=== PATIENT | female | born 1950 | race Hispanic/Latino ===

== ENCOUNTER 2020-01-08 10:23 | Inpatient (IN) | payer MEDICARE ==
[~2020-01-08] VITALS: Ht 152.4 cm; Wt 77.3 kg
[2020-01-08 12:36] LABS: BASOPHILS % 0.6 % (0.0-1.0); EOSINOPHILS # (AUTO) 0.1 (0.0-0.4); EOSINOPHILS % 1.7 % (0.0-6.0); HEMATOCRIT 38.8 % (34.2-44.1); HEMOGLOBIN 11.7 g/dL (12.0-16.0); LYMPHOCYTES # (AUTO) 2.2 (1.0-3.2); LYMPHOCYTES % 29.9 % (18.0-39.1); MEAN CORPUSCULAR HEMOGLOBIN 19.2 pg (28-32); MEAN CORPUSCULAR HGB CONC 30.2 g/dL (31-35); MEAN CORPUSCULAR VOLUME 63.8 fL (81-99); MONOCYTES # (AUTO) 0.6 (0.2-0.8); MONOCYTES % 8.1 % (4.4-11.3); NEUTROPHILS # (AUTO) 4.3 (2.1-6.9); RED BLOOD COUNT 6.08 x10e6/uL (3.6-5.1); RED CELL DISTRIBUTION WIDTH 16.9 % (11.7-14.4)
[2020-01-08 12:42] LABS: PLATELET COUNT 23 x10e3/uL (140-360)
--- NOTE | 2020-01-08 12:58 | Emergency Department Note ---
History of Present Illnes History of Present Illness Chief Complaint: General Medicine Complaints History of Present Illness This is a 69 year old female sent here by for platelet transfusion. States called today and lab from Wednesday showed platelet count 28. Platelet count on Wednesday around 40. Has had to get periodic transfusions over the last few years. States has small bruise on abdomen, but brusing at baseline and expects would have more brusing for platelet count at this level. PCP took patient of oral DM med at Wednesday appt. Historian: Patient Arrival Mode: Car History limited by: language barrier Technology Education Instructor Required: Yes Onset (how long ago): year(s) Location: abdomen Quality: no pain, brusing Radiation: Reports non-radiation Onset quality: unable to specify Timing of current episode: constant Progression: worsening Context: Denies recent illness, Denies recent surgery Associated symptoms: Reports denies other symptoms Past Medical/Family History Physician Review I have reviewed the patient's past medical and family history. Any updates have been documented here. Past Medical History Recent Fever: No Clinical Suspicion of Infectio: No New/Unexplained Change in Ment: No Past Medical History: Hypertension, Diabetes Other Medical History: thyroid Social History Smoking Cessation: Never Smoker Any Illegal Drug Use: No Review of Systems Review of Systems Constitutional: Reports no symptoms EENTM: Reports no symptoms Cardiovascular: Reports no symptoms Respiratory: Reports no symptoms Gastrointestinal: Reports no symptoms Musculoskeletal: Reports no symptoms Integumentary: Reports no symptoms Neurological: Reports no symptoms Psychological: Reports no symptoms Endocrine: Denies excessive sweating, Denies intolerance to cold, Denies intolerance to heat, Denies increased thirst, Denies increased urination Hematological/Lymphatic: Reports as per HPI, Reports easy bleeding, Reports easy bruising; Denies anemia, Denies blood clots Physical Exam Related Data Allergies: Coded Allergies: Penicillins (Verified Adverse Reaction, Unknown, made her face feel hot, 01/08/20) nurse told her not to take it again Physical Exam CONSTITUTIONAL Constitutional: Present well-developed, Present well-nourished HENT HENT: Present normocephalic, Present atraumatic HENT L/R: Present left ext ear normal, Present right ext ear normal EYES Eyes: Reports lids normal; Denies left eye discharge, Denies right eye discharge NECK Neck: Present ROM normal, Present supple PULMONARY Pulmonary: Present effort normal, Present breath sounds normal; Absent respiratory distress, Absent chest tenderness CARDIOVASCULAR Cardiovascular: Present regular rhythm, Present normal rate GASTROINTESTINAL Abdominal: Present soft, Present nontender GENITOURINARY SKIN Skin: Present warm, Present dry, Present bruising (abdomen); Absent rash MUSCULOSKELETAL NEUROLOGICAL Neurological: Present alert, Present oriented x 3 PSYCHOLOGICAL Psychological: Present mood/affect normal Results Laboratory Result Diagram: 01/08/20 1132 Laboratory HOPD: WBC 7.o, HGB 11.9, HCT 37.6, PLT 33. CMP normal with GLU 125. Laboratory Tests Test 01/08/20 11:32 White Blood Count 7.20 x10e3/uL (4.8-10.8) Red Blood Count 6.08 x10e6/uL (3.6-5.1) Hemoglobin 11.7 g/dL (12.0-16.0) Hematocrit 38.8 % (34.2-44.1) Mean Corpuscular Volume 63.8 fL (81-99) Mean Corpuscular Hemoglobin 19.2 pg (28-32) Mean Corpuscular Hemoglobin Concent 30.2 g/dL (31-35) Red Cell Distribution Width 16.9 % (11.7-14.4) Platelet Count 23 x10e3/uL (140-360) Neutrophils (%) (Auto) 59.0 % (38.7-80.0) Lymphocytes (%) (Auto) 29.9 % (18.0-39.1) Monocytes (%) (Auto) 8.1 % (4.4-11.3) Eosinophils (%) (Auto) 1.7 % (0.0-6.0) Basophils (%) (Auto) 0.6 % (0.0-1.0) Neutrophils # (Auto) 4.3 (2.1-6.9) Lymphocytes # (Auto) 2.2 (1.0-3.2) Monocytes # (Auto) 0.6 (0.2-0.8) Eosinophils # (Auto) 0.1 (0.0-0.4) Basophils # (Auto) 0.0 (0.0-0.1) Absolute Immature Granulocyte (auto 0.05 x10e3/uL (0-0.1) Assessment & Plan Medical Decision Making MDM Thrombocytopenia. Spoke with Dr. Farnsworth who agreed to admit for transfusion. Assessment & Plan Final Impression: (1) Thrombocytopenia Depart Disposition: ADMITTED Home Meds Reported Medications Omeprazole (OMEPRAZOLE) 40 Mg Capsule.dr, 20 DAILY 01/08/20 Levothyroxine Sodium (LEVOTHYROXINE SODIUM) 88 Mcg Tablet, 88 MCG PO DAILY, #30 TAB 01/08/20 Losartan Potassium (LOSARTAN POTASSIUM) 100 Mg Tablet, 100 MG PO DAILY, TAB 01/08/20 Medications in the ED Ondansetron HCl 4 mg Q4H PRN IV NAUSEA AND VOMITING; Start 01/08/20 at 13:00; Stop 02/07/20 at 12:59; Status UNV Sodium Chloride 10 ml PRN PRN INJ IV SITE FLUSH; Start 01/08/20 at 13:00; Stop 02/07/20 at 12:59; Status UNV TARA GRANADOS MD Jan 08, 2020 12:58
[2020-01-08] MEDS ORDERED: SODIUM CHLORIDE FLUSH 10 ML SYR INJ PRN (13:00)
[2020-01-08] MEDS ORDERED: ONDANSETRON HCL INJ 2MG/ML 2ML 2 MG/ML VIAL IV PRN (13:00)
[2020-01-08] MEDS ORDERED: LOSARTAN POTAS100 MG PO (14:00)
[2020-01-08] MEDS ORDERED: OMEPRAZOLE40 MG PO (14:00)
[2020-01-08] MEDS ORDERED: LEVOTHYROXINE88 MCG PO (14:00)
--- NOTE | 2020-01-08 14:50 | NUR ---
[facility] called to transport pt to 290
--- NOTE | 2020-01-08 14:57 | NUR ---
Report to Ashley Avendaño RN
[2020-01-08] MEDS ORDERED: CLONIDINE HCL 0.1 MG TAB PO ONE (15:15)
[2020-01-08 16:10] VITALS: BP 171/74
[2020-01-08 16:40] VITALS: BP 171/74
[2020-01-08 16:53] VITALS: BP 171/74
[2020-01-08 16:57] VITALS: BP 162/74
--- NOTE | 2020-01-08 17:23 | NUR ---
PATIENT ARRIVED ON THE UNIT AT 1530 FROM THE ER. PATIENT IS AWAKE, ALERT, AND IN STABLE CONDITIONS WITH NO S/S OF RESPIRATORY DISTRESS. NO PAIN VOICED. CALL LIGHT IS WITHIN REACH, PATIENT INSTRUCTED TO CALL FOR ASSISTANCE NEEDED.
--- NOTE | 2020-01-08 19:19 | NUR ---
PATIENT IN STABLE CONDITION WITH NO S/S OF RESPIRATORY DISTRESS. NO PAIN VOICED. CALL LIGHT IS WITHIN REACH, PATIENT INSTRUCTED TO CALL FOR ASSISTANCE NEEDED. REPORT GIVEN TO ONCOMING NURSE.
--- NOTE | 2020-01-08 19:20 | NUR ---
RECEIVED THE PATIENT IN REPORT.AAOX3.STABLE CONDITION.
[2020-01-08 20:00] VITALS: BP 146/67
[2020-01-08] MEDS ORDERED: DEXTROSE 50% SYRINGE 50 ML IV PRN (20:00)
--- NOTE | 2020-01-08 20:00 | NUR ---
CONSENT SIGNED FOR TRANSFUSION OF PLATELETS WITH HELP OF LEGAL FRAUD MANAGER RANDALL dHz, ID #[id number].V/S PARISA.
[2020-01-08 21:00] VITALS: BP 124/90
--- NOTE | 2020-01-08 21:00 | NUR ---
FIRST UNIT OF PLATELETS STARTED AFTER VERIFY [facility] JACE MCNEIL.V/S STABLE.
--- NOTE | 2020-01-08 22:10 | NUR ---
FIRST UNIT OF PLATELET TRANSFUSION COMPLETED.NO TRANSFUSION REACTION NOTED.PT.TOLERATED WELL.STABLE CONDITION.
[2020-01-08] MEDS: INSULIN REGULAR, HUMAN 100 UNIT/1 ML 3ML VIAL SQ SCH (22:14)
--- NOTE | 2020-01-08 23:15 | NUR ---
SECOND UNIT OF PLATELET TRANSFUSION STARTED.
[2020-01-09] VITALS (8 sets, daily range): BP systolic 124–162; BP diastolic 55–78
--- NOTE | 2020-01-09 01:00 | NUR ---
Transfusion completed.no reaction observed.pt is stable.
[2020-01-09] MEDS ORDERED: DOCUSATE SODIUM 100 MG CAP PO PRN (05:45)
[2020-01-09] MEDS ORDERED: ONDANSETRON HCL INJ 2MG/ML 2ML 2 MG/ML VIAL IV PRN (05:45)
[2020-01-09] MEDS ORDERED: ZOLPIDEM TARTRATE 5 MG TAB PO PRN (05:45)
--- NOTE | 2020-01-09 05:47 | NUR ---
H&P cc: low platelts HPI: 69yoF, PCP none, with hx thrombocytopenia, now worse PMH: HTN, hypothyroidism, GERD, chronic thrombocytopenia PSHx: hysterectomy Allergies; see emrFh/SH; ; no cigs Fh/SH; ; no cigs meds; see MAR ROS: no f/c/s/N/V/D/CASTANON/skin rash/confusion/dizziness/visionchanges/no cp v/s revd PE tired appearing anicteric ns1s2 mod bs soft nt nd no e/t skin dry flat affect awake; trejo labs/meds revd A/P: 69yoF Chronic thrombocytopenia- consult hematology. Mild anemia- f/u repeat Hypertensive Emergency- cont losartan; start BB Hypothyroisim- resume synthroid; check TSH GERD- cont pepcid Prop: scd; avoid heparin products. DIspo; f/u hematology recommendations; Beni Farnsworth MD, PhD.
[2020-01-09] MEDS: METOPROLOL TARTRATE 50 MG TAB PO SCH ×3 (05:58→17:10)
[2020-01-09 06:11] LABS: BASOPHILS % 0.6 % (0.0-1.0); EOSINOPHILS # (AUTO) 0.2 (0.0-0.4); HEMATOCRIT 33.4 % (34.2-44.1); HEMOGLOBIN 10.1 g/dL (12.0-16.0); LYMPHOCYTES # (AUTO) 2.5 (1.0-3.2); LYMPHOCYTES % 36.3 % (18.0-39.1); MEAN CORPUSCULAR HEMOGLOBIN 19.2 pg (28-32); MEAN CORPUSCULAR HGB CONC 30.2 g/dL (31-35); MEAN CORPUSCULAR VOLUME 63.5 fL (81-99); MONOCYTES # (AUTO) 0.6 (0.2-0.8); MONOCYTES % 7.9 % (4.4-11.3); NEUTROPHILS # (AUTO) 3.6 (2.1-6.9); NEUTROPHILS % 51.5 % (38.7-80.0); PLATELET COUNT 52 x10e3/uL (140-360); RED BLOOD COUNT 5.26 x10e6/uL (3.6-5.1); RED CELL DISTRIBUTION WIDTH 15.8 % (11.7-14.4)
[2020-01-09 06:29] LABS: CHOL/HDL RATIO 5.6 (3.0-3.6)
[2020-01-09] MEDS: ACETAMINOPHEN 325 MG TAB PO PRN ×2 (06:33→14:44)
--- NOTE | 2020-01-09 07:00 | NUR ---
BEDSIDE SHIFT REPORT RECEIVED FROM THE HOUSEKEEPER SUPERVISOR RN. EDUCATED PT ABOUT FALL PRECAUTIONS. PT VERBALIZED UNDERSTANDING. CALL LIGHT WITH IN EASY REACH. INSTRUCTED PT TO USE CALL LIGHT FOR ALL THE NEEDS. BED IS LOW AND LOCKED. SIDE RAILS X2. BED ALARM IS ON. PT DENIES NEEDS AT THIS TIME.
[2020-01-09 07:03] LABS: ANION GAP 13.9 mmol/L (8-16); BLOOD UREA NITROGEN 10 mg/dL (7-26); BUN/CREATININE RATIO 13 (6-25); CALCIUM 8.7 mg/dL (8.4-10.2); CARBON DIOXIDE 23 mmol/L (22-29); CHLORIDE 109 mmol/L (98-107); CREATININE, SERUM 0.75 mg/dL (0.57-1.11); EST GLOMERULAR FILTRATION RATE > 60 ML/MIN (60-); GLUCOSE 111 mg/dL (74-118); POTASSIUM 3.9 mmol/L (3.5-5.1); SODIUM 142 mmol/L (136-145)
--- NOTE | 2020-01-09 07:05 | NUR ---
Bed side shift report given to oncoming Rn.stable condition.
[2020-01-09 07:17] LABS: ALBUMIN 3.6 g/dL (3.5-5.0); BILIRUBIN,DIRECT 0.3 mg/dL (0.0-0.5)
[2020-01-09 07:57] LABS: ANISOCYTOSIS SLIGHT; PLATELET ESTIMATE MODERATELY DECREASED; PLATELET MORPHOLOGY COMMENT NORMAL; RBC MORPHOLOGY COMMENT ABNORMAL; TEAR DROP CELLS FEW
[2020-01-09 07:58] LABS: ELLIPTOCYTE, RBC SLIGHT; HYPOCHROMASIA SLIGHT; MICROCYTOSIS MODERATE
[2020-01-09] MEDS: INSULIN REGULAR, HUMAN 100 UNIT/1 ML 3ML VIAL SQ SCH ×4 (08:30→20:22)
[2020-01-09] MEDS: PANTOPRAZOLE SOD 40 MG TABEC PO SCH (08:45)
[2020-01-09] MEDS: LEVOTHYROXINE SODIUM 88 MCG TAB PO SCH (08:45)
[2020-01-09] MEDS: LOSARTAN POTASSIUM 100 MG TAB PO SCH (08:45)
--- NOTE | 2020-01-09 10:17 | NUR ---
HEMATOLOGY/ONCOLOGY CONSULTATION NOTE: REASON FOR CONSULTATION: Thrombocytopenia HISTORY OF PRESENT ILLNESS: Ms. Escobar is a pleasant 69 year old female with past medical history of hypertension, hypothyroidism, and diabetes mellitus who was admitted to [facility] from her primary care physician for platelet transfusion. Patient received a call from her primary care physician with platelet count 28,000. She has received platelet transfusions in the past. Patient notices small bruises around her abdominal region. Platelet count on admission 23,000. She also states she has a history of anemia. Hematology/Oncology has been consulted to assist with management. Presently, patient is resting comfortably in bed. She appears NAD and denies any new complaints. ALLERGIES: Penicillin PAST MEDICAL HISTORY: hypertension, diabetes mellitus, hypothyroidism PAST SURGICAL HISTORY: None FAMILY HISTORY: Noncontributory REVIEW OF SYSTEMS: 14 Point ROS limited secondary to language barrier PHYSICAL EXAMINATION: VITAL SIGNS: Reviewed per MAR GENERAL: NAD HEENT: NC, AT; EOMI NECK: Supple CARDIOVASCULAR: Regular rate, regular rhythm PULMONARY: Decreased breath sounds bilaterally ABDOMEN: Soft, NTND, BS x 4 MUSCULOSKELETAL Moves all EXTREMITIES: No cyanosis, no edema, no petechial lesion/ecchymosis NEUROLOGIC: Awake, alert PSHYCIATRIC: Cooperative LABORATORY DATA: 01/09/2020 WBC: 6.95 Hgb: 10.1 Hct: 33.4 Plt: 52 BUN: 10 Creatinine: 0.75 RADIOGRAPHIC DATA: None ASSESSMENT/PLAN: Ms. Escobar is a pleasant 69 year old female with past medical history of hypertension, hypothyroidism, and diabetes mellitus who was admitted to [facility] from her primary care physician for platelet transfusion. Patient received a call from her primary care physician with platelet count 28,0 00. She has received platelet transfusions in the past. Patient notices small bruises around her abdominal region. Platelet count on admission 23,000. She also states she has a history of anemia. Hematology/Oncology has been consulted to assist with management. 1. Thrombocytopenia: Uncertain etiology however appears acute on chronic. Will obtain PT/INR, acute hepatitis panel, abdominal US, and peripheral smear for further evaluation. Plt morphology normal. Liver enzymes normal. This could be immune mediated however will rule out other etiologies first. S/p 2 jumbo platel ets with improvement in counts now 52,000. No signs of active bleeding. Transfuse if platelet < 20,000. Will monitor closely. 2. Anemia: High RBC with severe microcytosis concerning for possible underlying hemoglobinopathy. Will obtain baseline workup to rule out iron deficiency, nutritional deficiency, and/or hemolysis. Will also obtain hemoglobin electropho resis to rule out hemoglobinopathy as mentioned above. Counts currently stable. Will provide further recommendations depending on workup. Monitor for now. 3. hypothyroidism: On Synthroid. Managed per primary team. 4. DVT/GI proph: SCDs for now. On Protonix. Above plan discussed with Dr. Min. Thank you for the consult. I will be available. Please call with questions.
--- NOTE | 2020-01-09 10:30 | NUR ---
PAGED LAB AND INFORMED CBC WITH PERIPHERAL SMEAR FOR TOMORROW MORNING.
[2020-01-09 10:39] LABS: % IRON SATURATION 25 % (15-50); IRON 76 ug/dL (50-170); TOTAL IRON BINDING CAPACITY 308 ug/dL (261-478); TRANSFERRIN 220 mg/dL (180-382)
[2020-01-09 11:46] LABS: LACTATE DEHYDROGENASE 218 IU/L (125-220)
--- NOTE | 2020-01-09 12:49 | Diagnostic Imaging Report ---
EXAM: Complete Abdominal Ultrasound INDICATION: Thrombocytopenia COMPARISON: None. TECHNIQUE: Transverse and longitudinal images of the upper abdomen were obtained. FINDINGS: Liver: Size: 13.8 cm in the right midclavicular line, normal Appearance: Normal echogenicity, smooth contour Mass: No focal masses Spleen: Size: 11.3 cm in length, normal Echogenicity: Normal Mass: No focal masses Gallbladder: Stones/Sludge: None Wall: 0.2 cm Appearance: No pericholecystic fluid or hydrops. Sonographic Martino's Sign: Negative Bile Ducts: Intrahepatic Ducts: No dilatation Extrahepatic Ducts: Common bile duct measures 0.3 cm, no dilatation Pancreas: Visualized portions of the pancreatic head, neck and proximal body are normal. Right Kidney: Size: 9.6 cm Echogenicity: Normal Parenchymal thickness: Normal Collecting System: No hydronephrosis Stone: None Cyst/Mass: None Left Kidney: Size: 9.6 cm Echogenicity: Normal Parenchymal thickness: Normal Collecting System: No hydronephrosis Stone: None Cyst/Mass: None Vessels: Aorta: Nonaneurysmal Inferior Vena Cava: Patent Main Portal Vein: 0.7 cm, normal size with hepatopetal flow. Free Fluid: No ascites or pleural effusion IMPRESSION: Unremarkable abdominal ultrasound. No hepatosplenomegaly in this patient with reported history of thrombocytopenia. Signed by: Dr. Santo Davies M.D. on 01/09/2020 12:45 PM
--- NOTE | 2020-01-09 17:58 | NUR ---
Nutrition Screen Note RD Recommendation for Physician: - Recommend adding 1500 ADA to current diet 2/2 DM hx Plan of Care: RD following, monitoring for tolerance and adequacy Nutrition reason for involvement: MST screen Primary Diagnose(s): thrombocytopenia PMH: DM, hypothyroidism, HTN Ht: 60 in Wt: 186 lb BMI: 36.3 kg/m2 IBW: [address] Assessment: 01/08: 69 YOF admitted for thrombocytopenia requiring platelet transfusions. Pt evaluated today per MST2 screen on admit. Pt Kazakh speaking only, unable to obtain hx over the phone. No reported wt loss on admit per MD note. Pt with good po intake currently, 75% of meals. No GI distress. Labs and meds reviewed. Chart reviewed. Will continue to monitor. Current Diet: Cardiac Malnutrition Evaluation (01/09/20) The patient does not meet criteria for a specified degree of malnutrition at this time. Will re-evaluate at follow-up as appropriate. Diet Education Needs Assessment: Diet education not indicated at this time. Diet tolerance: tolerating po Nutrition Care Level: low Signed: Alissa Nath RD, LD, [facility]
--- NOTE | 2020-01-09 19:00 | NUR ---
BEDSIDE SHIFT REPORT GIVEN TO THE DIRECTOR GEOTHERMAL OPERATIONS RN. PT DENIED FURTHER NEEDS.
--- NOTE | 2020-01-09 19:05 | NUR ---
Received the patient in report.no pain voiced.stable condition.bed locked and in lowest position.phone and call light within reach.instructed to call for assistance as needed.
--- NOTE | 2020-01-09 23:34 | NUR ---
RESTING .NO PAIN VOICED.VOIDED.AMBULATES.BED LOCKED AND IN LOWEST POSITION.PHONE AND CALL LIGHT WITHIN REACH.
[2020-01-10] VITALS (8 sets, daily range): BP systolic 113–145; BP diastolic 51–69
--- NOTE | 2020-01-10 05:30 | NUR ---
Notified lab about peripheral smear on CBC.
[2020-01-10 05:48] LABS: HEMATOCRIT 35.8 % (34.2-44.1); HEMOGLOBIN 10.8 g/dL (12.0-16.0); MEAN CORPUSCULAR HEMOGLOBIN 19.3 pg (28-32); MEAN CORPUSCULAR HGB CONC 30.2 g/dL (31-35); MEAN CORPUSCULAR VOLUME 63.9 fL (81-99); RED CELL DISTRIBUTION WIDTH 15.8 % (11.7-14.4)
[2020-01-10 06:42] LABS: PLATELET COUNT 27 x10e3/uL (140-360)
[2020-01-10 06:56] LABS: BASOPHILS % 0.4 % (0.0-1.0); EOSINOPHILS # (AUTO) 0.2 (0.0-0.4); HEMATOCRIT 36.3 % (34.2-44.1); HEMOGLOBIN 10.9 g/dL (12.0-16.0); LYMPHOCYTES # (AUTO) 2.8 (1.0-3.2); LYMPHOCYTES % 39.7 % (18.0-39.1); MEAN CORPUSCULAR HEMOGLOBIN 19.3 pg (28-32); MEAN CORPUSCULAR VOLUME 64.1 fL (81-99); MONOCYTES # (AUTO) 0.5 (0.2-0.8); MONOCYTES % 7.6 % (4.4-11.3); NEUTROPHILS # (AUTO) 3.5 (2.1-6.9); NEUTROPHILS % 48.9 % (38.7-80.0); RED BLOOD COUNT 5.66 x10e6/uL (3.6-5.1); RED CELL DISTRIBUTION WIDTH 16.1 % (11.7-14.4)
--- NOTE | 2020-01-10 07:07 | NUR ---
Bed side shift report given to oncoming rn.stable condition.
[2020-01-10 07:08] LABS: PLATELET COUNT 28 x10e3/uL (140-360)
--- NOTE | 2020-01-10 07:13 | NUR ---
Platelet 28L.call placed to answering service and spoke to to page .Linad Cooper is aware of that.
[2020-01-10] MEDS ORDERED: DEXAMETHASONE SOD PHOS 10 MG/1 ML VIAL IV ONE (07:45)
--- NOTE | 2020-01-10 07:53 | NUR ---
HEMATOLOGY/ONCOLOGY PROGRESS NOTE: REASON FOR CONSULTATION: Thrombocytopenia HISTORY OF PRESENT ILLNESS: Patient resting comfortably, appear NAD. PHYSICAL EXAMINATION: VITAL SIGNS: Reviewed per MAR GENERAL: NAD HEENT: NC, AT; EOMI NECK: Supple CARDIOVASCULAR: Regular rate, regular rhythm PULMONARY: Decreased breath sounds bilaterally ABDOMEN: Soft, NTND, BS x 4 MUSCULOSKELETAL Moves all EXTREMITIES: No cyanosis, no edema, no petechial lesion/ecchymosis NEUROLOGIC: Awake, alert PSHYCIATRIC: Cooperative LABORATORY DATA: 01/10/2020 WBC: 7.08 Hgb: 10.9 Hct: 36.3 Plt: 28 BUN: 10 Creatinine: 0.75 Hgb electrophoresis: pending RADIOGRAPHIC DATA: Abd US 01/09/2020: Unremarkable ASSESSMENT/PLAN: Ms. Escobar is a pleasant 69 year old female with past medical history of hypertension, hypothyroidism, and diabetes mellitus who was admitted to [facility] from her primary care physician for platelet transfusion. Patient received a call from her primary care physician with platelet count 28,0 00. She has received platelet transfusions in the past. Patient notices small bruises around her abdominal region. Platelet count on admission 23,000. She also states she has a history of anemia. Hematology/Oncology has been consulted to assist with management. 1. Thrombocytopenia: Uncertain etiology however appears acute on chronic. PT/INR, fibrinogen, and acute hepatitis panel pending. Abdominal US without hepatosplenomegaly. Peripheral smear pending for further evaluation. Liver enzymes normal. S/p 2 jumbo platelets with improvement in counts now 52,000 warner octavio now trending down to 28,000. Patient has received multiple transfusions in the past and responded to steroids however occasionally has drop in platelet count, less likely MDS. 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 Plan to switch patient Prednisone upon discharge, she may benefit from Rituxan which can be done in the outpatient setting. No signs of active bleeding. Transfuse if platelet < 20,000. Will monitor closely. 2. Anemia: High RBC with severe microcytosis concerning for possible underlying hemoglobinopathy. Does not appear iron deficiency or nutritional deficiency. Retic count slightly elevated with LDH normal, haptoglobin is pending however hemolysis is less likely. Hemoglobin electrophoresis pending to rule out hemoglobinopathy as mentioned above. Counts currently stable. Monitor for now. 3. Hypothyroidism: On Synthroid. Managed per primary team. 4. DVT/GI proph: SCDs for now. On Protonix. Above plan discussed with Dr. Min. Thank you for the consult. I will be available. Please call with questions.
[2020-01-10] MEDS ORDERED: DEXAMETHASONE SOD PHOS INJ 4 MG/ML VIAL IV ONE (08:00)
--- NOTE | 2020-01-10 08:08 | NUR ---
IM- progress note O/N see below ROS: no f/c/s/N/V/D/CASTANON/skin rash/confusion/dizziness/visionchanges/no cp v/s revd PE tired appearing anicteric ns1s2 mod bs soft nt nd no e/t skin dry flat affect awake; trejo labs/meds revd A/P: 69yoF Chronic thrombocytopenia- consult hematology. Mild anemia- f/u repeat Hypertensive Emergency- cont losartan; start BB Hypothyroisim- resume synthroid; check TSH GERD- cont pepcid Prop: scd; avoid heparin products. DIspo; f/u hematology recommendations; 7- Hba1c/LDL 5.9/99; PReDM- use ADA diet; Plt back to 28K; autoantibodies; defer to hematology; No active bleeding; Beni Farnsworth MD, PhD.
[2020-01-10] MEDS: LOSARTAN POTASSIUM 100 MG TAB PO SCH (08:09)
[2020-01-10] MEDS: METOPROLOL TARTRATE 50 MG TAB PO SCH ×2 (08:10→16:56)
[2020-01-10] MEDS: LEVOTHYROXINE SODIUM 88 MCG TAB PO SCH (08:10)
[2020-01-10] MEDS: PANTOPRAZOLE SOD 40 MG TABEC PO SCH (08:10)
[2020-01-10] MEDS: INSULIN REGULAR, HUMAN 100 UNIT/1 ML 3ML VIAL SQ SCH ×4 (08:21→21:26)
[2020-01-10 08:27] LABS: INR 0.99; PROTHROMBIN TIME 13.6 seconds (11.9-14.5)
[2020-01-10 08:32] LABS: EOSINOPHILS % (MANUAL) 2 % (0-7); LYMPHOCYTES % (MANUAL) 35 % (19-48); MICROCYTOSIS SLIGHT; MONOCYTES % (MANUAL) 6 % (3.4-9.0); NEUTROPHILS % (MANUAL) 57 % (40-74); PLATELET ESTIMATE MARKEDLY DECREASED; PLATELET MORPHOLOGY COMMENT NORMAL
[2020-01-10 08:33] LABS: RBC MORPHOLOGY COMMENT ABNORMAL
--- NOTE | 2020-01-10 14:58 | NUR ---
DAY 2 OBS. PLT . HEMATOLOGY CONSULT. DECADRON 20MG IV GIVEN X1. PLAN DC HOME ON PREDNISONE. F/U LABS IN AM. CALL TO DR. SANDOVAL FOR PLAN OF CARE.
[2020-01-10] MEDS: ACETAMINOPHEN 325 MG TAB PO PRN ×3 (15:28→21:27)
--- NOTE | 2020-01-10 19:20 | NUR ---
BEDSIDE SHIFT REPORT RECEIVED FROM DAY RN. PT IS ALERT AND ORIENTED X3. RESPIRATIONS ARE EVEN AND UNLABORED. RT FA 20 G INTACT. SITE HEALTHY. POSSIBLE D/C IN AM BY DR SANDOVAL- D/C EFRAIN PER FOOD MOBILE DRIVER. CALL LIGHT IS WITHIN REACH. BED LOCKED AND IN LOW POSITION. PT DENIES PAIN.
[2020-01-11] VITALS: BP 142/82
[2020-01-11 04:00] VITALS: BP 122/61
[2020-01-11 06:11] LABS: BASOPHILS % 0.2 % (0.0-1.0); HEMATOCRIT 34.9 % (34.2-44.1); HEMOGLOBIN 10.9 g/dL (12.0-16.0); LYMPHOCYTES # (AUTO) 2.4 (1.0-3.2); LYMPHOCYTES % 16.9 % (18.0-39.1); MEAN CORPUSCULAR HEMOGLOBIN 20.3 pg (28-32); MEAN CORPUSCULAR HGB CONC 31.2 g/dL (31-35); MEAN CORPUSCULAR VOLUME 64.9 fL (81-99); MONOCYTES # (AUTO) 0.7 (0.2-0.8); MONOCYTES % 4.9 % (4.4-11.3); NEUTROPHILS # (AUTO) 10.8 (2.1-6.9); NEUTROPHILS % 77.1 % (38.7-80.0); RED BLOOD COUNT 5.38 x10e6/uL (3.6-5.1); RED CELL DISTRIBUTION WIDTH 17.6 % (11.7-14.4)
--- NOTE | 2020-01-11 07:04 | NUR ---
IM- progress note O/N see below ROS: no f/c/s/N/V/D/CASTANON/skin rash/confusion/dizziness/visionchanges/no cp v/s revd PE tired appearing anicteric ns1s2 mod bs soft nt nd no e/t skin dry flat affect awake; trejo labs/meds revd A/P: 69yoF Chronic thrombocytopenia- consult hematology. Mild anemia- f/u repeat Hypertensive Emergency- cont losartan; start BB Hypothyroisim- resume synthroid; check TSH GERD- cont pepcid Prop: scd; avoid heparin products. DIspo; f/u hematology recommendations; 01-09 Hba1c/LDL 5.9/99; PReDM- use ADA diet; Plt back to 28K; autoantibodies; defer to hematology; No active bleeding; 01-10 started on steroids for posisble ITP; f/u labs; Beni Farnsworth MD, PhD.
[2020-01-11 07:13] LABS: PLATELET COUNT 41 x10e3/uL (140-360)
--- NOTE | 2020-01-11 07:26 | NUR ---
LAB CALLED WITH PLATLET RESULTS- ENDORSED TO DAY RN.ALSO REPORTED WBC GOING UP - REPORTED TO DAY RN.
[2020-01-11] MEDS: INSULIN REGULAR, HUMAN 100 UNIT/1 ML 3ML VIAL SQ SCH ×2 (07:30→12:09)
--- NOTE | 2020-01-11 07:59 | NUR ---
HEMATOLOGY/ONCOLOGY PROGRESS NOTE: REASON FOR CONSULTATION: Thrombocytopenia HISTORY OF PRESENT ILLNESS: Patient resting comfortably, appear NAD. Anxious to go home. PHYSICAL EXAMINATION: VITAL SIGNS: Reviewed per MAR GENERAL: NAD HEENT: NC, AT; EOMI NECK: Supple CARDIOVASCULAR: Regular rate, regular rhythm PULMONARY: Decreased breath sounds bilaterally ABDOMEN: Soft, NTND, BS x 4 MUSCULOSKELETAL Moves all EXTREMITIES: No cyanosis, no edema, no petechial lesion/ecchymosis NEUROLOGIC: Awake, alert PSHYCIATRIC: Cooperative LABORATORY DATA: 01/11/2020 WBC: 13.99 Hgb: 10.9 Hct: 34.9 Plt: 41 BUN: 10 Creatinine: 0.75 Hgb electrophoresis: pending RADIOGRAPHIC DATA: Abd US 01/09/2020: Unremarkable ASSESSMENT/PLAN: Ms. Escobar is a pleasant 69 year old female with past medical history of hypertension, hypothyroidism, and diabetes mellitus who was admitted to [facility] from her primary care physician for platelet transfusion. Patient received a call from her primary care physician with platelet count 28,0 00. She has received platelet transfusions in the past. Patient notices small bruises around her abdominal region. Platelet count on admission 23,000. She also states she has a history of anemia. Hematology/Oncology has been consulted to assist with management. 1. Thrombocytopenia: Uncertain etiology however appears acute on chronic. PT/INR, fibrinogen, and acute hepatitis panel pending. Abdominal US without hepatosplenomegaly. Peripheral smear pending for further evaluation. Liver enzymes normal. S/p 2 jumbo platelets transfused. Patient has received multiple transfusions in the past and responded to steroids however occasionally has drop in platelet count, this is less likely MDS. This appears to be ITP, continue patient on Dexa 20mg IV x 1 todat. Counts improving. Plan to switch patient Prednisone 40mg daily upon discharge, she may benefit from Rituxan which can be done in the outpatient setting. No signs of active bleeding. Will monitor closely. 2. Anemia: High RBC with severe microcytosis concerning for possible underlying hemoglobinopathy. Does not appear iron deficiency or nutritional deficiency. Retic count slightly elevated with LDH normal, haptoglobin is pending however hemolysis is less likely. Hemoglobin electrophoresis pending to rule out hemoglo binopathy as mentioned above. Counts currently stable. Monitor for now. 3. Hypothyroidism: On Synthroid. Managed per primary team. 4. DVT/GI proph: SCDs for now. On Protonix. Above plan discussed with Dr. Min. Thank you for the consult. I will be available. Please call with questions.
[2020-01-11] MEDS ORDERED: DEXAMETHASONE SOD PHOS 10 MG/1 ML VIAL IV ONE (08:00)
[2020-01-11 08:06] VITALS: BP 134/68
[2020-01-11] MEDS: METOPROLOL TARTRATE 50 MG TAB PO SCH (08:25)
[2020-01-11] MEDS: LOSARTAN POTASSIUM 100 MG TAB PO SCH (08:25)
[2020-01-11] MEDS: LEVOTHYROXINE SODIUM 88 MCG TAB PO SCH (08:26)
[2020-01-11] MEDS: PANTOPRAZOLE SOD 40 MG TABEC PO SCH (08:26)
[2020-01-11] MEDS ORDERED: DEXAMETHASONE SOD PHOS INJ 4 MG/ML VIAL IV ONE (09:00)
[2020-01-11 09:20] VITALS: BP 134/68
[2020-01-11 10:25] LABS: POLYCHROMASIA FEW; TEAR DROP CELLS FEW
[2020-01-11 10:26] LABS: HYPOCHROMASIA SLIGHT
[2020-01-11 10:27] LABS: ANISOCYTOSIS SLIGHT; ELLIPTOCYTE, RBC SLIGHT; MICROCYTOSIS SLIGHT; PLATELET ESTIMATE MARKEDLY DECREASED; PLATELET MORPHOLOGY COMMENT NORMAL; RBC MORPHOLOGY COMMENT ABNORMAL
[2020-01-11 10:28] LABS: OVALOCYTES FEW
[2020-01-11 11:28] VITALS: BP 147/70
--- NOTE | 2020-01-11 14:30 | NUR ---
Spoke with Dr. Farnsworth about discharge order. Verbal order given to discharge patient.
[2020-01-11 15:53] VITALS: BP 149/76
[2020-01-11] MEDS ORDERED: PREDNISONE20 MG PO (16:30)
[2020-01-11] MEDS ORDERED: ONDANSETRON HCL 4 MG ORAL DISINTEGRATING TAB PO PRN (16:45)
--- NOTE | 2020-01-11 17:00 | NUR ---
Discharge education provided with the daughter who lives with patient. Education provided over a loud speaker on the phone. Verbalized understanding. Prescription given. Discharge packet given. Awaiting for milk pickup truck driver. Addendum: 01/11/20 at 1729 by Allison Hayward RN PIV to right AC removed, catheter tip intact, applied pressure and occlusive dressing applied. No bleeding noted.
--- NOTE | 2020-01-11 17:19 | NUR ---
transported patient via wheelchair to private vehicle with all personal belongings taken
--- NOTE | 2020-01-12 06:28 | NUR ---
D/C summary Principal Dx; Chronic thrombocytopenia- consult hematology. Mild anemia- f/u repeat Hypertensive Emergency- cont losartan; start BB Secondary Dx: Hypothyroisim- resume synthroid; check TSH GERD- cont pepcid Prop: scd; avoid heparin products. DIspo; f/u hematology recommendations; 01-09 Hba1c/LDL 5.9/99; PReDM- use ADA diet; Plt back to 28K; autoantibodies; defer to hematology; No active bleeding; 01-10 started on steroids for posisble ITP; f/u labs; d/c home on steroids stable f/u pcp 2-4 days and hematology 1 week d/c>35mins Beni Farnsworth MD, PhD.
[2020-01-12] MEDS ORDERED: PREDNISONE 20 MG TAB PO SCH (09:00)
--- OUTSIDE RECORDS SUMMARY | 2020-01-12 18:50 | XMS REPORT | Continuity of Care Document ---
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 Encounters Encounter Performer Location Date Office Visit Jayce Hernandez MD [facility] 350 Sep 26, 2013 Problems Problem Effective Dates Problem Status IMMUNE THROMBOCYTOPENIC PURPURA Sep 26, 2013 Active Procedures Date Description Comments Sep 26, 2013 smoking status never smoker Medications Medication Instructions Start Date Status METFORMIN HCL 500 MG TABS Sep 26, 2013 Active LOSARTAN POTASSIUM 25 MG TABS Sep 26, 2013 Ac tive AMLODIPINE BESYLATE 5 MG TABS Sep 26, 2013 Ac tive PREDNISONE 10 MG TABS Sep 26, 2013 Active LEVOTHYROXINE SODIUM 88 MCG TABS Sep 26, 2013 Active Vital Signs Date Description Test Result Sep 26, 2013 height E&M - 8302-2 HEIGHT 60 in Sep 26, 2013 weight E&M - 3141-9 WEIGHT 178 lb Sep 26, 2013 temperature E&M TEMPERATURE 98.0 deg f Sep 26, 2013 pulse rate E&M - 8867-4 PULSE RATE 76 /min Sep 26, 2013 blood pressure, systolic - 8480-6 BP SYSTOLIC 139 mm Hg Sep 26, 2013 blood pressure, diastolic - 8462-4 BP DIASTOLIC 79 mm Hg
--- OUTSIDE RECORDS SUMMARY | 2020-01-12 18:50 | XMS REPORT | Continuity of Care Document ---
Author Author [facility] t Organization [facility] Address [address] [place] [address] Phone Unavailable Care Team Providers Care Pediatric Audiologist Name Role Phone MD KRISHAN DEL RIO PCP RESHMA SANDOVAL Attphys Unavailable Alfredo Fellow(), Joe Olson Attphys Lawrence Fellow(), Luis Armando Mays Attphys [phone] IVELISSE HAQUE M.D. Attphys Unavailable DAVID TRAVIS M.D. Attphys Unavailable Tess Sampson Fellow(), Tre Finch Attphys RESHMA SANDOVAL Admphys Unavailable Payers Payer Name Policy Type Policy Number Effective Date Expiration Date S massiel [facility] [id number] 2019 00:00:00 [facility] Medicare A & B [id number] 2015 00:00:00 [facility] MEDICAREMEDICARE PART A & [id number], [place] [address] xxxxxxxxxxx 2015 00:00:00 [facility] [place] MEDICAIDTP24 QUALIFIED MEDICARE [id number], [place] [address] xxxxxxxxx 2015 00:00:00 Located within [facility] Problems Condition Name Condition Details Condition Category Status Onset Date Resolution Date Last Treatment Date Treating Clinician Comments Source Subgingival dental calculus Subgingival dental calculus Disease Active 2015-05-07 00:00:00 Located within [facility] Pain, dental Pain, dental Disease Active 2015-03-18 00:00:00 [facility] Dental examination Dental examination Disease Active 2013-12-01 00:00:0 0 [facility] IMMUNE THROMBOCYTOPENIC PURPURA IMMUNE THROMBOCYTOPENIC PURPURA Active 09/26/2013 Condition 09/26/2013 [facility] Condition Active 2013-09-26 00:00:00 2013-09-26 09:54:54 M shaka Infante Decay, teeth Decay, teeth Disease Active 2013-04-12 00:00:00 [facility] Diabetes mellitus Diabetes mellitus Disease Active 2011-08-21 00:00:00 [facility] Unspecified urinary incontinence Unspecified urinary incontinenc e Disease Active 2011-08-21 00:00:00 [facility] Cystocele, midline Cystocele, midline Disease Active 2011-08-21 00:00:0 0 [facility] Depression Depression Disease Active 2010-05-07 00:00:00 [facility] Hyperlipidemia LDL goal < 100 Hyperlipidemia LDL goal < 100 Disease Active 2009-10-01 00:00:00 Located within [facility] Hypertriglyceridemia Hypertriglyceridemia Disease Active 00:00:00 [facility] Chronic headache Chronic headache Disease Active 2009-10-01 00:00:00 [facility] Idiopathic thrombocytopenic purpura Idiopathic thrombocytopenic purpura Disease Active 2008-10-08 00:00:00 Overview : 59yo F with ITP, prednisone recently discontinued at hematology appt 12/09/09 - see Dr. Guallpa's note for more details. [facility] Beta-thalassemia Beta-thalassemia Disease Active 2008-09-07 00:00:00 [facility] Hiatal hernia Hiatal hernia Disease Active 2008-08-03 00:00:00 [facility] GERD (gastroesophageal reflux disease) GERD (gastroesophagea l reflux disease) Disease Active 2008-08-03 00:00:00 [facility] HTN (hypertension) HTN (hypertension) Disease Active 2006-02-18 00:00:0 0 [facility] Hypothyroidism Hypothyroidism Disease Active 2006-02-18 00:00:00 [facility] Thrombocytopenia Problem Active [facility] Bladder prolapse Bladder prolapse Problem Active [facility] History of hypothyroidism History of hypothyroidism Problem Resolved [facility] History of hypertension History of hypertension Problem Resolved [facility] Post-operative state Post-operative state Problem Active [facility] History of Temporary low platelet count History of Temporary low platelet count Problem Resolved [facility] Atrophic vaginitis Atrophic vaginitis Problem Active [facility] Incomplete uterovaginal prolapse Incomplete uterovaginal prolaps e Problem Active [facility] Fitting and adjustment of pessary Fitting and adjustment of pess jerrod Problem Active [facility] Vulvovaginal candidiasis Vulvovaginal candidiasis Problem Active [facility] Postoperative examination Postoperative examination Problem Active [facility] Urinary symptom or sign Urinary symptom or sign Problem Active [facility] OAB (overactive bladder) OAB (overactive bladder) Problem Active [facility] Chronic idiopathic constipation Chronic idiopathic constipation Pro blem Active [facility] Obesity Obesity Disease Active [facility] Gout Gout Disease Active [facility] Allergies, Adverse Reactions, Alerts Allergy Name Allergy Type Status Severity Reaction(s) Onset Date Inacti ve Date Treating Clinician Comments Source Penicillin Propensity to adverse reactions Active made her face feel hot 2020-01-08 00:00:00 [facility] Penicillins DA Active [place] 2018-03-16 00:00:00 [facility] Penicillins DA Active [place] 2017-01-13 00:00:00 [facility] Penicillins Allergy to drug (finding) Active [facility] Family History Family Member Diagnosis Comments Start Date Stop Date Source Mother Family history of leukemia [facility] Natural sister Diabetes [facility] lt Natural sister Hypertension [facility] unknown Other [facility] Social History Social Habit Start Date Stop Date Quantity Comments Source Sex Assigned At [facility] Exposure to SARS-CoV-2 (event) Not sure [facility] Cigarettes smoked current (pack per day) - Reported 00:00:00 2019-12-25 00:00:00 [facility] Cigarette pack-years 2019-12-25 00:00:00 2019-12-25 00:00:00 [facility] Alcohol intake 2019-12-25 00:00:00 2019-12-25 00:00:00 Current non-drinker of alcohol (finding) [facility] History of tobacco use 1988-02-19 00:00:00 Current smoker [facility] Smoking Status Start Date Stop Date Source Never smoked tobacco (finding) [facility] Former smoker 2019-12-25 00:00:00 2019-12-25 00:00:00 [facility] ealt Medications Ordered Medication Name Filled Medication Name Start Date Stop Da te Current Medication? Ordering Clinician Indication Dosage Frequency Signature (SIG) Comments Components Source Myrbetriq 50 MG Oral Tablet Extended Release 24 Hour M yrbetriq 50 MG Oral Tablet Extended Release 24 Hour 2019-05-19 00:00:00 Yes DAVID DALE M.D. 1 QD TAKE 1 TABLET DAILY [facility] Linzess 145 MCG Oral Capsule Linzess 145 MCG Oral Capsule 2019-03-0 4 00:00:00 Yes DAVID TRAVIS M.D. Elvin e 1 capsule every morning, 30 minutes prior to eating. [facility] hydroCHLOROthiazide 25 MG Oral Tablet hydroCHLOROthiazide 25 MG Oral Tablet 2018-10-28 00:00:00 Yes 1 QD TAKE 1 TABLET OPAL Y. [facility] Losartan Potassium 100 MG Oral Tablet Losartan Potassium 100 MG Oral Tablet 2018-10-14 00:00:00 Yes 1 QD TAKE 1 TABLET OPAL Y. [facility] Polyethylene Glycol 3350 17 GM/SCOOP Oral Powder Polye thylene Glycol 3350 17 GM/SCOOP Oral Powder 2018-10-14 00:00:00 Yes DAVID Reyes QD MIX 1 CAPFUL (17GM) IN 8 OUNCES OF WATER, JUICE, OR TEA AND DRINK DAILY. [facility] Estradiol 0.1 MG/GM Vaginal Cream Estradiol 0.1 MG/GM Vagina l Cream 2018-10-14 00:00:00 Yes DAVID TRAVIS M.D. INSERT 1 GRAM INTO THE VAGINA USING APPLICATOR EVERY OTHER NIGHT AT BEDTIME FOR 6 WEEKS THEN DECREASE TO TWICE WEEKLY AT BEDTIME THEREAFTER [facility] Levothyroxine Sodium 88 MCG Oral Tablet Levothyroxine Sodium 88 MCG Oral Tablet 2018-10-14 00:00:00 Yes [facility] cetirizine (ZYRTEC) 10 mg tablet 2018-06-17 00:00:00 Yes Allergic pharyngitis 10mg QD Take 1 tablet by mouth daily. [facility] famotidine (PEPCID) 20 mg tablet 2018-06-17 00:00:00 Yes GERD without esophagitis 20mg Q.5D Take 1 tablet by mouth 2 times daily. [facility] atorvastatin (LIPITOR) 40 mg tablet 2018-06-17 00:00:00 Yes Mixed hyperlipidemia 40mg Take 1 tablet by mouth at bedtime nightly. [facility] levothyroxine (SYNTHROID) 88 mcg tablet 2018-03-02 00:00:00 Yes Hypothyroidism, unspecified type 88ug QD Take 1 tablet by mouth da tim. [facility] ibuprofen (MOTRIN) 800 mg tablet 2016-10-27 00:00:00 Yes Dental infection 800mg Take 1 tablet by mouth every 8 hours as needed for Natalee n. [facility] losartan (COZAAR) 100 mg tablet 2015-12-31 00:00:00 Yes HTN (hypertension) 100mg QD Take 1 tablet by mouth daily. [facility] blood glucose (PRECISION XTRA TEST STRIPS) test strips 2015-10-03 00:00:00 Yes Diabetes mellitus 4 times weekly Use as directed .. [facility] cetirizine (ZYRTEC) 10 mg tablet 2015-08-07 00:00:00 Yes Nasal congestion 10mg QD Take 1 tablet by mouth daily. [facility] hydrochlorothiazide (HYDRODIURIL) 25 mg tablet 2015-08-07 00 :00:00 Yes Essential hypertension 25mg QD Take 1 tablet by mouth daily. [facility] traMADol (ULTRAM) 50 mg tablet 2015-04-10 00:00:00 Yes Tooth infection 50mg Take 1 tablet by mouth every 6 hours as needed for Natalee n. [facility] ergocalciferol (VITAMIN D2) 50,000 unit capsule 2015-04-10 0 0:00:00 Yes Myalgia [id number] Take 1 capsule by mouth weekly. [facility] metFORMIN (GLUCOPHAGE) 500 mg tablet 2015-02-08 00:00:00 Yes Type II diabetes mellitus, well controlled 500mg Take 1 tablet by mouth 2 times daily (with meals). [facility] lancets 28 gauge 2015-01-29 00:00:00 Yes Diabetes mellitus by MISCELLANEOUS route 4 times weekly. [facility] gabapentin (NEURONTIN) 300 mg capsule 2014-12-20 00:00:00 Yes Type II diabetes mellitus, well controlled 300mg Take 1 capsule by mouth 3 times daily. [facility] HYDROcodone-acetaminophen (NORCO) 5-325 mg tablet 2014-01-01 00:00:00 Yes ITP (idiopathic thrombocytopenic purpura) 1{tbl} Take 1 tablet by mouth every 6 hours [facility] 800 [facility] tablet 2014-01-01 00:00:00 Yes ITP (idiopathic thrombocytopenic purpura) 800mg Take 1 tablet by mouth every 8 hours as needed for Pain. [facility] ibuprofen (MOTRIN) 800 mg tablet 2013-12-01 00:00:00 Yes Dental examination 800mg Take 1 tablet by mouth every 8 hours as n eeded for Pain. [facility] SUMAtriptan (IMITREX) 50 mg tablet 2013-11-23 00:00:00 Yes Migraine headache Take 1 tablet by isabela th at onset of headache. Repeat after 2 hours if needed. Maximum 200mg/24 hours.. [facility] METFORMIN HCL 500 MG TABS 2013-09-26 00:00:00 Yes [facility] LOSARTAN POTASSIUM 25 MG TABS 2013-09-26 00:00:00 Yes [facility] AMLODIPINE BESYLATE 5 MG TABS 2013-09-26 00:00:00 Yes [facility] PREDNISONE 10 MG TABS 2013-09-26 00:00:00 Yes [facility] LEVOTHYROXINE SODIUM 88 MCG TABS 2013-09-26 00:00:00 Yes [facility] ibuprofen (MOTRIN) 800 mg tablet 2013-06-21 00:00:00 Yes Arthritis, gouty 800mg Take 1 tablet by mouth every 8 hours as needed for Natalee n. [facility] amitriptyline (ELAVIL) 10 mg tablet 2013-06-21 00:00:00 Yes Chronic headaches 10mg Take 1 tablet by mouth at bedtime. [facility] famotidine (PEPCID) 20 mg tablet 2013-01-16 00:00:00 Yes GERD (gastroesophageal reflux disease) 20mg Q.5D Take 1 tablet by mouth 2 times daily. [facility] oxybutynin (DITROPAN) 5 mg tablet 2011-10-12 00:00:00 Yes Unspecified urinary incontinence 5mg Take 1 tablet by mouth 3 times daily. [facility] loratadine (CLARITIN) 10 mg tablet 2011-10-12 00:00:00 Yes Allergic rhinitis, cause unspecified 10mg Take 1 table t by mouth daily as needed for Allergies (cough, nasal congestion or scratchy throat). [facility] zolpidem (AMBIEN) 5 mg Tab 2011-10-12 00:00:00 Yes Insomnia, unspecified 5mg Take 1 tablet by mouth nightly as needed (insomnia ). [facility] PRECISION XTRA GLUCOMETER 2009-08-19 00:00:00 Yes Diabetes mellitus use to check sugars [facility] Levothyroxine Sodium Levothyroxine Sodium Yes 88 Daily [facility] Losartan Potassium Losartan Potassium Yes 100 Da tim [facility] Omeprazole Omeprazole Yes 20 Daily [facility] Prednisone Prednisone Yes 40 Daily [facility] Immunizations Ordered Immunization Name Filled Immunization Name Date Status Comments Source Influenza Vaccine 2015-04-04 00:00:00 Completed [facility] Tdap Tetanus, diphtheria, acellular pertussis Vaccine 2011-08-21 00:[facility]00 [facility] 2010-04-12 [facility] Hep[facility] A Vaccine 2007-04-29 00:00:00 Completed [facility] Pneumoccoccal 2007-04-29 00:00:00 Completed [facility] Influenza Vaccine 2007-04-07 00:00:00 [facility] Hepatitis A Vaccine 2006-10-27 00:00:00 [facility] Td Tetanus, diphtheria Toxoids Vaccine 1998-09-16 00:00:00 [facility] Influenza Vaccine 1996-03-28 00:00:00 [facility] Vital Signs Vital Name Observation Time Observation Value Comments Source Body Temperature 2020-01-11 15:53:00 97.8 [degF] [facility] Weight 2020-01-11 00:56:00 170.38 [lb_av] [facility] BMI (Body Mass Index) 2020-01-11 00:56:00 33.3 kg/m2 [facility] Systolic blood pressure 2020-01-01 13:10:00 150 mm[Hg] [facility] Diastolic blood pressure 2020-01-01 13:10:00 71 mm[Hg] [facility] Heart rate 2020-01-01 13:10:00 69 /min [facility] Body temperature 2020-01-01 13:10:00 37.06 Maribell David [facility] Respiratory rate 2020-01-01 13:10:00 18 /min typo, fixed from 8 to 18 * [facility] Body height 2020-01-01 13:10:00 154.9 cm [facility] Body weight 2020-01-01 13:10:00 82.963 kg [facility] ealt BMI 2020-01-01 13:10:00 34.56 kg/m2 [facility] BP Systolic 2019-05-19 12:47:00 124 mm[Hg] Location: ELISEO; Positi on: Sitting [facility] BP Diastolic 2019-05-19 12:47:00 86 mm[Hg] Location: ERIC Positi on: Sitting [facility] Height 2019-05-19 12:47:00 63 [in_us] [facility] Weight 2019-05-19 12:47:00 181.25 [lb_av] [facility] Body Mass Index Calculated 2019-05-19 12:47:00 32.11 kg/m2 [facility] Temperature 2019-05-19 12:47:00 98.4 [degF] Method: Oral [facility] ty [facility] Heart Rate 2019-05-19 12:47:00 74 /min [facility] ty [facility] O2 SAT 2019-05-19 12:47:00 98 % [facility] BP Systolic 2019-04-06 14:36:00 111 mm[Hg] Location: ERIC Positi on: Sitting [facility] BP Diastolic 2019-04-06 14:36:00 70 mm[Hg] Location: ELISEO; Positi on: Sitting [facility] Height 2019-04-06 14:36:00 63 [in_us] [facility] ty [facility] Weight 2019-04-06 14:36:00 180.4 [lb_av] [facility] Body Mass Index Calculated 2019-04-06 14:36:00 31.96 kg/m2 [facility] Heart Rate 2019-04-06 14:36:00 80 /min Location: L Brachial Artery; [facility] Respiration Rate 2019-04-06 14:36:00 18 /min [facility] BP Systolic 2019-03-21 12:48:00 134 mm[Hg] Location: LUE; Positi on: Sitting [facility] BP Diastolic 2019-03-21 12:48:00 75 mm[Hg] Location: LUE; Positi on: Sitting [facility] Height 2019-03-21 12:48:00 63 [in_us] [facility] ty [facility] Weight 2019-03-21 12:48:00 178 [lb_av] [facility] Body Mass Index Calculated 2019-03-21 12:48:00 31.53 kg/m2 [facility] Heart Rate 2019-03-21 12:48:00 72 /min Location: L Radial; Q uality: Normal [facility] BP Systolic 2019-03-17 09:07:00 126 mm[Hg] Location: RUE; Positi on: Sitting [facility] BP Diastolic 2019-03-17 09:07:00 78 mm[Hg] Location: RUE; Positi on: Sitting [facility] Height 2019-03-17 09:07:00 63 [in_us] [facility] Weight 2019-03-17 09:07:00 179 [lb_av] [facility] Body Mass Index Calculated 2019-03-17 09:07:00 31.71 kg/m2 [facility] Heart Rate 2019-03-17 09:07:00 72 /min [facility] BP Systolic 2019-02-03 09:09:00 150 mm[Hg] Location: LUE; Positi on: Sitting [facility] BP Diastolic 2019-02-03 09:09:00 85 mm[Hg] Location: LUE; Positi on: Sitting [facility] Height 2019-02-03 09:09:00 63 [in_us] [facility] Weight 2019-02-03 09:09:00 177.25 [lb_av] [facility] Body Mass Index Calculated 2019-02-03 09:09:00 31.4 kg/m2 [facility] Temperature 2019-02-03 09:09:00 98.7 [degF] Method: Oral [facility] Heart Rate 2019-02-03 09:09:00 72 /min [facility] BP Systolic 2019-01-06 09:09:00 154 mm[Hg] Location: RUE; Positi on: Sitting [facility] BP Diastolic 2019-01-06 09:09:00 87 mm[Hg] Location: RUE; Positi on: Sitting [facility] Height 2019-01-06 09:09:00 63 [in_us] [facility] Weight 2019-01-06 09:09:00 176.125 [lb_av] [facility] Body Mass Index Calculated 2019-01-06 09:09:00 31.2 kg/m2 [facility] Temperature 2019-01-06 09:09:00 98.9 [degF] Method: Oral [facility] Heart Rate 2019-01-06 09:09:00 72 /min [facility] BP Systolic 2018-11-04 11:35:00 131 mm[Hg] Location: RUE; Positi on: Sitting [facility] BP Diastolic 2018-11-04 11:35:00 83 mm[Hg] Location: RUE; Positi on: Sitting [facility] Height 2018-11-04 11:35:00 63 [in_us] [facility] Weight 2018-11-04 11:35:00 178 [lb_av] [facility] Body Mass Index Calculated 2018-11-04 11:35:00 31.53 kg/m2 [facility] Temperature 2018-11-04 11:35:00 98.5 [degF] Method: Oral [facility] Heart Rate 2018-11-04 11:35:00 88 /min [facility] ty [facility] BP Systolic 2018-10-28 09:45:00 143 mm[Hg] Location: RUE; Positi on: Sitting [facility] BP Diastolic 2018-10-28 09:45:00 86 mm[Hg] Location: RUE; Positi on: Sitting [facility] Height 2018-10-28 09:45:00 63 [in_us] [facility] Weight 2018-10-28 09:45:00 177.25 [lb_av] [facility] Body Mass Index Calculated 2018-10-28 09:45:00 31.4 kg/m2 [facility] Temperature 2018-10-28 09:45:00 98.8 [degF] [facility] Heart Rate 2018-10-28 09:45:00 67 /min [facility] BP Systolic 2018-10-14 11:08:00 129 mm[Hg] Location: ERIC Chaudhary on: Sitting [facility] BP Diastolic 2018-10-14 11:08:00 76 mm[Hg] Location: ERIC Chaudhary on: Sitting [facility] Height 2018-10-14 11:08:00 60 [in_us] [facility] ty [facility] Weight 2018-10-14 11:08:00 175.5 [lb_av] [facility] Body Mass Index Calculated 2018-10-14 11:08:00 34.28 kg/m2 [facility] Temperature 2018-10-14 11:08:00 98.7 [degF] Method: Oral [facility] Heart Rate 2018-10-14 11:08:00 76 /min [facility] Height 2013-09-26 14:54:54 [facility] Weight 2013-09-26 14:54:54 [facility] Temperature Oral (F) 2013-09-26 14:54:54 98.0 F [facility] 2013-09-26 14:54:54 [facility] Systolic (mm Hg) 2013-09-26 14:54:54 Adarsh [facility] [place] Diastolic (mm Hg) 2013-09-26 14:54:54 Mem [facility] Procedures Procedure Date / Time Performed Performing Clinician [facility] e US abdomen complete 2020 00:00:00 [facility] CBC/DIFF 2020-01-01 11:18:00 [facility] CBC 2020-01-01 11:18:00 [facility] DIFFERENTIAL, MANUAL 2020-01-01 11:18:00 Wesley Fuentes [facility] HBV DNA, PCR 2019-12-25 10:55:00 Wesley Fu[facility] CBC/DIFF 2019-12-25 10:55:00 [facility] CBC 2019-12-25 10:55:00 [facility] DIFFERENTIAL, MANUAL 2019-12-25 10:55:00 Wesley Fuentes [facility] CBC/DIFF 2019-12-11 08:39:00 Davon Bravo [facility] COMPREHENSIVE METABOLIC PANEL 2019-12-11 08:39:00 Lawrence Davon Luis Armando [facility] CBC 2019-12-11 08:39:00 Davon Bravo [facility] DIFFERENTIAL, MANUAL 2019-12-11 08:39:00 LawrenceDavon [facility] CBC/DIFF 2019-08-14 11:52:00 Lawrence Davon Durán [facility] COMPREHENSIVE METABOLIC PANEL 2019-08-14 11:52:00 LawrenceDavon [facility] CBC 2019-08-14 11:52:00 Lawrence Davon Zazueta [facility] FERRITIN 2019-08-14 11:52:00 Lawrence Davon Luis Armando [facility] CBC/DIFF 2019-06-19 12:05:00 Lawrence Davon Durán [facility] COMPREHENSIVE METABOLIC PANEL 2019-06-19 12:05:00 LawrenceDavon [facility] CBC 2019-06-19 12:05:00 Lawrence Davon Durán [facility] Abdomen 2 views [id number] 2019-03-21 00:00:00 [facility] CBC/DIFF 2019-03-20 13:08:00 Helga Henriquez [facility] jorge COMPREHENSIVE METABOLIC PANEL 2019-03-20 13:08:00 Brandin Henriquez ra [facility] CBC 2019-03-20 13:08:00 Helga Henriquez [facility] jorge [[facility]] URINALYSIS, COMPLETE 2019-03-17 00:00:00 [facility]] CULTURE, URINE, ROUTINE 2019-03-17 00:00:00 [facility] CBC/DIFF 2019-02-20 12:24:00 Lawrence Davon Luis Armando [facility] COMPREHENSIVE METABOLIC PANEL 2019-02-20 12:24:00 Lawrence [place] Luis Armando [facility] CBC 2019-02-20 12:24:00 Davon Bravo [facility] [[facility]] CULTURE, URINE, ROUTINE 2019-02-03 00:00:00 [facility] [[facility]] URINALYSIS, COMPLETE 2019-02-03 00:00[facility]] URINALYSIS, COMPLETE 2019-01-06 00:00:00 [facility] [QL] CULTURE, URINE, ROUTINE 2019-01-06 00:00:00 [facility] [[facility]] URINALYSIS, COMPLETE 2018-10-14 00:00:00 [facility]] CULTURE, URINE, ROUTINE 2018-10-14 00:00:00 [facility] Pelvis with Pelvis Transvaginal [id number] 2018-10-14 00:00:00 [facility] History of section [facility] History of Shoulder surgery [facility] History of Carpal tunnel surgery [facility] History of Breast biopsy excisional [facility] Plan of Care Planned Activity Planned Date Details Comments Source Future Scheduled Test 2023-12-14 00:00:00 Screening for emilie gnant neoplasm of colon (procedure) [code = 192165321] [facility] Scheduled Test 2020-03-14 00:00:00 IMM Influenza Seas onal Mar to August (>/= 19 yrs) [code = IMM Influenza Seasonal Mar to August (>/= 19 yrs)] [facility] Scheduled Test 2019-07-01 00:00:00 Breast Cancer Scrn (Yearly) [code = Breast Cancer Scrn (Yearly)] [facility] Scheduled Test 2019-06-17 00:00:00 Hemoglobin A1c dale surement (procedure) [code = 55521024] [facility] Diagnostic Test Pending 2018-10-14 00:00:00 US Pelvis with P claudia Transvaginal 69047 [code = 19185] [facility] Future Scheduled Test 2016-01-11 00:00:00 DM Retinal Exam (Y early) [code = DM Retinal Exam (Yearly)] [facility] Scheduled Test 2014-09-28 00:00:00 DM Foot Exam (Year ly) [code = DM Foot Exam (Yearly)] [facility] Instructions Diabetes and Diet [facility] Encounters Start Date/Time End Date/Time Encounter Type Admission Type Attendi [facility] Care Department Encounter ID Source 2018-12-13 10:57:22 Outpatient MHSE MHSE [id number] [facility] 2020-01-10 15:16:00 2020-01-11 17:19:00 Discharged Inpatient 1 RESHMA SANDOVAL [facility] [id number] [facility] 2019-11-03 14:45:00 2019-11-03 14:45:00 Appointment; IVELISSE HAQUE M.D. CATALANO, MARC, M.D. [facility] [id number] [facility] 2019-08-18 11:30:00 2019-08-18 11:30:00 Appointment; DAVID VEGA M.D. ELSHATANOUFY, SOLAFA, M.D. [facility] [id number] [facility] 2019-05-19 13:30:00 2019-05-19 13:30:00 Appointment; DAVID VEGA M.D. ELSHATANOUFY, SOLAFA, M.D. [facility] [id number] [facility] 2019-04-06 15:00:00 2019-04-06 15:00:00 Appointment; IVELISSE HAQUE M.D. CATALANO, MARC, M.D. [facility], [address] [id number] [facility] 2019-03-21 13:00:00 2019-03-21 13:00:00 Appointment; IVELISSE HAQUE M.D. CATALANO, MARC, M.D. [facility] [id number] [facility] 2019-03-17 09:00:00 2019-03-17 09:00:00 Appointment; DAVID VEGA M.D. ELSHATANOUFY, SOLAFA, M.D. [facility] at [facility] [id number] [facility] 2019-03-10 10:25:00 2019-03-10 10:25:00 Emergency E SE SE [id number] [facility] 2019-02-03 09:00:00 2019-02-03 09:00:00 Appointment; DAVID VEGA M.D. ELSHATANOUFY, SOLAFA, M.D. [facility] [id number] [facility] 2019-01-06 09:00:00 2019-01-06 09:00:00 Appointment; DAVID VEGA M.D. ELSHATANOUFY, SOLAFA, M.D. [facility] Women's [place] at [facility] [id number] [facility] 2019-01-02 18:11:00 2019-01-01 18:10:00 Inpatient E MHSE MED [id number] [facility] 2018-12-23 07:30:00 2018-12-23 07:30:00 Appointment; DAVID VEGA M.D. ELSHATANOUFY, SOLAFA, M.D. [facility] Urogynecology [facility] [id number] [facility] 2018-11-04 11:30:00 2018-11-04 11:30:00 Appointment; DAVID VEGA M.D. ELSHATANOUFY, SOLAFA, M.D. [facility] UroGynecology [facility] [id number] [facility] 2018-10-28 12:15:00 2018-10-28 12:15:00 Outpatient MHSE MHSE [id number] [facility] 2018-10-28 10:00:00 2018-10-28 10:00:00 Appointment; DAVID VEGA M.D. ELSHATANOUFY, SOLAFA, M.D. [facility] Women's [facility] [id number] [facility] 2018-10-14 11:00:00 2018-10-14 11:00:00 Appointment; DAVID VEGA M.D. ELSHATANOUFY, SOLAFA, M.D. [facility] Women's [facility] [id number] [facility] Results Test Description Test Time Test Comments Results Result Comments Source Capillary blood glucose measurement by glucometer (mas s/volume) 2020-01-11 14:24:00 Test Item Bedside Glucose (test code = 39564-4) 241 70-120 M[facility] ID[id number] count (number/volume)2020-01-11 05:25:00* Test Item Value Reference Range Interpretation Comments White Blood Count (test code = 6690-2) 13.99 4.8-10.8 [facility] erythrocytes automated count (number/volume)2020-01-11 05:25:00* Test Item Value Reference Range Interpretation Comments Red Blood Count (test code = 789-8) 5.38 3.6-5.1 [facility] CenterBlood hemoglobin measurement (moles/volume)2020-01-11 05:25:00* Test Item Value Reference Range Interpretation Comments Hemoglobin (test code = 47137-1) 10.9 12.0-16.0 [facility] CenterAutomated blood hematocrit (volume fraction)2020-01-11 05:25:00* Test Item Value Reference Range Interpretation Comments Hematocrit (test code = 4544-3) 34.9 34.2-44.1 [facility] CenterAutomated erythrocyte mean corpuscular gfxnqx2846-56-22 05:25:00* Test Item Value Reference Range Interpretation Comments Mean Corpuscular Volume (test code = 787-2) 64.9 81-99 [facility] CenterAutomated erythrocyte mean corpuscular hemoglobin (mass per erythrocyte)2020-01-11 05:25:00* Test Item Value Reference Range Interpretation Comments Mean Corpuscular Hemoglobin (test code = 785-6) 20.3 28-32 [facility] CenterAutomated erythrocyte mean corpuscular hemoglobin concentration measurement (mass/volume)2020-01-11 05:25:00* Test Item Value Reference Range Interpretation Comments Mean Corpuscular Hemoglobin Concent (test code = 786-4) 31.2 31-35 [facility] Medical CenterRDW XsvSm-Ios3330-76-30 05:25:00* Test Item Value Reference Range Interpretation Comments Red Cell Distribution Width (test code = 22933-4) 17.6 11.7 -14.4 [facility] CenterAutomated blood platelet count (count/volume)2020-01-11 05:25:00* Test Item Value Reference Range Interpretation Comments Platelet Count (test code = 777-3) 41 140-360 Results repeated and called to Genesis Plummer at 0703 on 01/11/20 by Dimple Bunn. Read back and verified.[facility] Automated blood segmented neutrophil count as percentage of total leukocytes 2020-01-11 05:25:00* Test Item Value Reference Range Interpretation Comments Neutrophils (%) (Auto) (test code = 30702-1) 77.1 38.7-80.0 [facility] CenterAutomated blood lymphocyte count as percentage ot total gjicruhbpy1941-59-29 05:25:00* Test Item Value Reference Range Interpretation Comments Lymphocytes (%) (Auto) (test code = 736-9) 16.9 18.0-39.1 [facility] CenterAutomated blood monocyte count as percentage of total hoxhrazozj4562-62-98 05:25:00* Test Item Value Reference Range Interpretation Comments Monocytes (%) (Auto) (test code = 5905-5) 4.9 4.4-11.3 [facility] CenterAutomated blood eosinophil count as percentage of total ibqzanocog4742-68-34 05:25:00* Test Item Value Reference Range Interpretation Comments Eosinophils (%) (Auto) (test code = 713-8) 0.0 0.0-6.0 [facility] CenterAutomated blood basophil count as percentage of total ovwhumxjyb7281-65-15 05:25:00* Test Item Value Reference Range Interpretation Comments Basophils (%) (Auto) (test code = 706-2) 0.2 0.0-1.0 [facility] CenterFluoroscopic procedure less than one hour clvdgykx6609-38-90 05:25:00* Test Item Value Reference Range Interpretation Comments IM GRANULOCYTES % (test code = IM GRANULOCYTES %) 0.9 0.0- 1.0 [facility] CenterAutomated blood neutrophil count 2020-01-11 05:25:00* Test Item Value Reference Range Interpretation Comments Neutrophils # (Auto) (test code = 751-8) 10.8 2.1-6.9 [facility] CenterBlood lymphocytes count (number/volume) 2020-01-11 05:25:00* Test Item Value Reference Range Interpretation Comments Lymphocytes # (Auto) (test code = 96752-1) 2.4 1.0-3.2 [facility] CenterBlood monocytes automated count (number/volume)2020-01-11 05:25:00* Test Item Value Reference Range Interpretation Comments Monocytes # (Auto) (test code = 742-7) 0.7 0.2-0.8 [facility] CenterAutomated blood eosinophil count 2020-01-11 05:25:00* Test Item Value Reference Range Interpretation Comments Eosinophils # (Auto) (test code = 711-2) 0.0 0.0-0.4 [facility] CenterAutomated blood basophil count (count/volume)2020-01-11 05:25:00* Test Item Value Reference Range Interpretation Comments Basophils # (Auto) (test code = 704-7) 0.0 0.0-0.1 [facility] CenterFluoroscopic procedure less than one hour fmzsemkk3303-50-14 05:25:00* Test Item Value Reference Range Interpretation Comments Absolute Immature Granulocyte (auto (baron t code = Absolute Immature Granulocyte (auto) 0.12 0-0.1 [facility] count by estimate (number/volume)2020-01-11 05:25:00* Test Item Value Reference Range Interpretation Comments Platelet Estimate (test code = 46590-1) MARKEDLY DECREASED [facility] Medical CenterPlatelet jvdycmprsf6394-05-42 05:25:00* Test Item Value Reference Range Interpretation Comments Platelet Morphology Comment (test code = 69901-6) NORMAL [facility] CenterBlood polychromasia detection by light xxskjnmmbl7211-56-08 05:25:00* Test Item Value Reference Range Interpretation Comments Polychromasia (test code = 99356-6) FEW [facility] CenterBlood hypochromia detection by light wpogeqliuc6429-40-60 05:25:00* Test Item Value Reference Range Interpretation Comments Hypochromasia (test code = 728-6) SLIGHT [facility] anisocytosis detection by light nnyunbigtt9791-56-66 05:25:00* Test Item Value Reference Range Interpretation Comments Anisocytosis (test code = 702-1) SLIGHT [facility] CenterBlood microcytes detection by light buzdyoaqoq0683-86-19 05:25:00* Test Item Value Reference Range Interpretation Comments Microcytosis (test code = 741-9) SLIGHT [facility] CenterBlood dacrocytes detection by light vfntpgssqd8681-94-19 05:25:00* Test Item Value Reference Range Interpretation Comments Tear Drop Cells (test code = 7791-7) FEW [facility] CenterBlood ovalocytes detection by light ffnoxstedj4056-39-68 05:25:00* Test Item Value Reference Range Interpretation Comments Ovalocytes (test code = 774-0) FEW [facility] Medical CenterElliptocyte xkwzmqhop0766-31-01 05:25:00 * Test Item Value Reference Range Interpretation Comments Elliptocytes (test code = 96511-5) SLIGHT [facility] Medical CenterRBC dvcdzpwert5785-11-13 05:25:00* Test Item Value Reference Range Interpretation Comments Red Cell Morphology Comment (test code = 6742-1) ABNORMAL [facility] CenterProthrombin time (PT) in platelet poor plasma by coagulation qkwmt2409-48-45 08:02:00* Test Item Value Reference Range Interpretation Comments Prothrombin Time (test code = 5902-2) 13.6 11.9-14.5 [facility] Medical CenterINR in Platelet poor plasma by Coagulation raffv8429-84-86 08:02:00* Test Item Value Reference Range Interpretation Comments Prothromb Time International Ratio (test code = 6301-6) 0.99 Oral Anticoagulant Therapy INR Values:1. Low Intensity Therapy 1.5 - 2.02 . Moderate Intensity Therapy 2.0 - 3.03. High Intensity Therapy(1) 2.5 - 3. 54. High Intensity Therapy(2) 3.0 - 4.05. Panic Value INR > 5.0 [facility] Medical CenterFibrinogen measurement in platelet poor plasma by coagulation assay (mass/volume)2020-01-10 08:02:00* Test Item Value Reference Range Interpretation Comments Fibrinogen (test code = 3255-7) 263 493-070 [facility] CenterFluoroscopic procedure less than one hour wdgazocx9318-13-96 05:20:00* Test Item Value Reference Range Interpretation Comments Differential Total Cells Counted (test code = Cathy harpl Total Cells Counted) 100 [facility] blood neutrophils/100 leukocytes 2020-01-10 05:20:00* Test Item Value Reference Range Interpretation Comments Neutrophils % (Manual) (test code = 58733-2) 57 40-74 [facility] leukocytes 2020-01-10 05:20:00* Test Item Value Reference Range Interpretation Comments Lymphocytes % (Manual) (test code = 737-7) 35 19-48 [facility] blood monocytes/100 leukocytes 2020-01-10 05:20:00* Test Item Value Reference Range Interpretation Comments Monocytes % (Manual) (test code = 744-3) 6 3.4-9.0 [facility] blood eosinophil count as percentage of total cdacumbmdn1934-64-49 05:20:00* Test Item Value Reference Range Interpretation Comments Eosinophils % (Manual) (test code = 714-6) 2 0-7 [facility] CenterUS ABDOMEN WFLVPYVX6458-40-11 12:43:00 [place] [address] Patient Name: NIKKI DEL RIO MR #: [id number] : 1950 Age/Sex: 69/F Req #: [id number] Adm Physician: RESHMA SANDOVAL MD Ordered by: MELANIA MALDONADO Report #: [id number] Location: MED/SURG3 [facility] Procedure: [id number] US/US ABDOMEN COMPLETE Exam Date: 01/09/20 Exam Time: 1037 REPORT STATUS: Signed EXAM: Complete A bdominal Ultrasound INDICATION: Thrombocytopenia COMPARISON: None. TECHNIQUE: Transverse and longitudinal images of the upper abdomen were obtai maritza. FINDINGS: Liver: Size: 13.8 cm in the right midclavicul ar line, normal Appearance: Normal echogenicity, smooth contour Ma ss: No focal masses Spleen: Size: 11.3 cm in length, normal Echogenicity: Normal Mass: No focal masses Gallbladder: Sto lalit/Sludge: None Wall: 0.2 cm Appearance: No pericholecystic fluid or hydrops. Sonographic Martino's Sign: Negative Bile Ducts: Intrahepatic Ducts: No dilatation Extrahepatic Ducts: Common bile duct measures 0.3 cm, no dilatation Pancreas: Visualized portions of the pancreatic head, neck and proximal body are normal. Right Kidney: Size: 9.6 cm Echogenicity: Normal Parenchymal thickness: Normal Collecting System: No hydronephrosis Stone: None Cyst/Ma ss: None Left Kidney: Size: 9.6 cm Echogenici ty: Normal Parenchymal thickness: Normal Collecting System: No hydronephrosis Stone: None Cyst/Mass: None Vessels: A anastasiya: Nonaneurysmal Inferior Vena Cava: Patent Main Portal Vein: 0 .7 cm, normal size with hepatopetal flow. Free Fluid: No ascites or pleural effusion IMPRESSION: Unremarkable abdominal ultrasound. No h epatosplenomegaly in this patient with reported history of thrombocytopenia. Signed by: Dr. Jamia Davies M.D. on 2020 12:45 PM Dictated By: JAMIA DAVIES MD 1245 Transcribed By: DENISE on 01/09/20 1245 COPY TO: MELANIA MLADONADO Serum or plasma haptoglobin measurement (mass/volume)2020 12:00:00* Test Item Value Reference Range Interpretation Comments Haptoglobin (test code = 4542-7) 17 74-803 Performed at: [address] [id number] [place] Department Worker: Sandi Oakes MD, Phone: [phone] Harlingenerum or plasma hepatitis A virus IgM antibody detection by obtavjstdkw6567-05-70 12:00:00* Test Item Value Reference Range Interpretation Comments Hepatitis A IgM Antibody (test code = 37440-3) Negative Negativ e [facility] or plasma hepatitis B virus surface antigen detection by yzzzswvnlvc3789-95-68 12:00:00* Test Item Value Reference Range Interpretation Comments Hepatitis B Surface Antigen (test code = 5196-1) Negative Negat miguel [facility] or plasma hepatitis B virus core IgM antibody detection by iiqdtpatwuc1665-06-37 12:00:00* Test Item Value Reference Range Interpretation Comments Hepatitis B Core IgM Antibody (test code = 22541-4) Negative Ne gative [facility]um hepatitis C virus antibody jisqnorcu1636-91-28 12:00:00* Test Item Value Reference Range Interpretation Comments Hepatitis C Antibody (test code = 61733-1) <0.1 0.0-0.9 Negative: < 0.8 Indeterminate: 0.8 - 0.9 Positive: > 0.9 The CDC recommends that a positive HCV antibody result be followed up with a HCV Nucleic Acid Amplification test (587589).Performed at: [facility] [address] [id number] Director: Sylvester Siddiqi MD, Phone: [phone] Harlingenerum or plasma folate measurement (mass/volume)2020 12:00:00* Test Item Value Reference Range Interpretation Comments Folate (test code = 2284-8) 7.8 >3.0 A serum folate concentration of less than 3.1 ng/mL isconsidered to represent cl inical deficiency.Performed at: [facility] [address] [id number] Director: Sylvester Siddiqi MD, Phone: [phone] Medical CenterAutomated reticulocyte count as percentage of total euenvwhbnmqk1220-50-08 05:45:00* Test Item Value Reference Range Interpretation Comments Percent Reticulocyte Count (test code = 49028-7) 2.4 0.8-2 .2 [facility] or plasma sodium measurement (moles/volume)2020 05:45:00* Test Item Value Reference Range Interpretation Comments Sodium Level (test code = 2951-2) 142 136-145 [facility]um or plasma potassium measurement (moles/volume)2020 05:45:00* Test Item Value Reference Range Interpretation Comments Potassium Level (test code = 2823-3) 3.9 3.5-5.1 [facility] or plasma chloride measurement (moles/volume)2020 05:45:00* Test Item Value Reference Range Interpretation Comments Chloride Level (test code = 2075-0) 109 98-107 [facility]um or plasma carbon dioxide, total measurement (moles/volume)2020 05:45:00* Test Item Value Reference Range Interpretation Comments Carbon Dioxide Level (test code = 2028-9) 23 22-29 [facility] or plasma anion klm1222-71-97 05:45:00* Test Item Value Reference Range Interpretation Comments Anion Gap (test code = 76142-5) 13.9 8-16 [facility] or plasma urea nitrogen measurement (mass/volume)2020 05:45:00* Test Item Value Reference Range Interpretation Comments Blood Urea Nitrogen (test code = 3094-0) 10 7-26 [facility] or plasma creatinine measurement (mass/volume)2020 05:45:00* Test Item Value Reference Range Interpretation Comments Creatinine (test code = 2160-0) 0.75 0.57-1.11 [facility] or plasma urea nitrogen/creatinine mass rfqrz9375-57-80 05:45:00* Test Item Value Reference Range Interpretation Comments BUN/Creatinine Ratio (test code = 3097-3) 13 6-25 [facility] Medical CenterEstimated glomerular filtration rate (GFR) wtyrezpqwgpnh6827-20-86 05:45:00* Test Item Value Reference Range Interpretation Comments Estimat Glomerular Filtration Rate (test code = 835719609) > 60 >60 Ranges were taken from the National Kidney Disease Education Program and the [facility] literature.Reference ranges:60 or greater: Laozgb95-60 ( for 3 consecutive months): Chronic kidney disease 15 or less: Kidney failureCHRISTUS Santa [facility] Hospital – Medical CenterGlucose blsdurxlfee4882-32-60 05:45:00* Test Item Value Reference Range Interpretation Comments Glucose Level (test code = KRL7547) 111 74-118 [facility] or plasma calcium measurement (mass/volume)2020 05:45:00* Test Item Value Reference Range Interpretation Comments Calcium Level (test code = 20553-3) 8.7 8.4-10.2 [facility] Medical CenterFluoroscopic procedure less than one hour ycpizzmq7258-94-49 05:45:00* Test Item Value Reference Range Interpretation Comments Hemoglobin A1c Percent (test code = Hemoglobin A1c Percent) 5.9 4.0-7.0 [facility]um or plasma iron measurement (mass/volume)2020 05:45:00* Test Item Value Reference Range Interpretation Comments Iron Level (test code = 2498-4) 76 50-170 [facility]ling[facility]um or plasma iron binding capacity measurement (mass/volume)2020 05:45:00* Test Item Value Reference Range Interpretation Comments Total Iron Binding Capacity (test code = 2500-7) 308 261-4 78 [facility]lingenerum or plasma iron saturation measurement (mass fraction)2020 05:45:00* Test Item Value Reference Range Interpretation Comments Percent Iron Saturation (test code = 2502-3) 25 15-50 [facility]um or plasma transferrin measurement (mass/volume)2020 05:45:00* Test Item Value Reference Range Interpretation Comments Transferrin (test code = 3034-6) 220 180-382 [facility]ling[facility]um or plasma total bilirubin measurement (mass/volume)2020 05:45:00* Test Item Value Reference Range Interpretation Comments Total Bilirubin (test code = 1975-2) 0.8 0.2-1.2 [facility] or plasma conjugated bilirubin measurement (mass/volume)2020 05:45:00* Test Item Value Reference Range Interpretation Comments Direct Bilirubin (test code = 48174-6) 0.3 0.0-0.5 [facility] Medical CenterFluoroscopic procedure less than one hour atnfmtgb4247-90-49 05:45:00* Test Item Value Reference Range Interpretation Comments Aspartate Amino Transf (AST/SGOT) (test code = Aspartate Amino Transf (AST/SGOT)) 33 5-34 [facility]ling[facility]um or plasma alanine aminotransferase measurement (enzymatic activity/volume)2020 05:45:00* Test Item Value Reference Range Interpretation Comments Alanine Aminotransferase (ALT/SGPT) (test code = 1742-6) 35 0[facility]55 [facility] lactate dehydrogenase measurement (enzymatic activity/volume)2020 05:45:00* Test Item Value Reference Range Interpretation Comments Lactate Dehydrogenase (test code = 764460004) 218 125-220 [facility] protein measurement (mass/volume)2020 05:45:00* Test Item Value Reference Range Interpretation Comments Total Protein (test code = 2885-2) 6.8 6.5-8.1 [facility] albumin measurement (mass/volume)2020 05:45:00* Test Item Value Reference Range Interpretation Comments Albumin (test code = 1751-7) 3.6 3.5-5.0 [facility] alkaline phosphatase measurement (enzymatic activity/volume)2020 05:45:00* Test Item Value Reference Range Interpretation Comments Alkaline Phosphatase (test code = 6768-6) 73 40-150 [facility] triglyceride measurement (mass/volume)2020 05:45:00* Test Item Value Reference Range Interpretation Comments Triglycerides Level (test code = 2571-8) 170 0-149 [facility] cholesterol measurement (mass/volume)2020 05:45:00* Test Item Value Reference Range Interpretation Comments Cholesterol Level (test code = 2093-3) 162 0-199 Less than 200 mg/dL Low Qvso174 - 239 mg/dL Borderline Lccu373 m g/dl and greater High Risk [facility] cholesterol in LDL measurement (mass/volume) 2020 05:45:00* Test Item Value Reference Range Interpretation Comments LDL Cholesterol (test code = 2089-1) 99 60-130 [facility] cholesterol in HDL measurement (mass/volume)2020 05:45:00* Test Item Value Reference Range Interpretation Comments HDL Cholesterol (test code = 2085-9) 29 40-60 [facility] plasma total cholesterol/cholesterol in HDL mass [id number] 05:45:00* Test Item Value Reference Range Interpretation Comments Cholesterol/HDL Ratio (test code = 9830-1) 5.6 3.0-3.6 [facility]obal[facility] (vitamin B12) measurement (mass/volume)2020 05:45:00* Test Item Value Reference Range Interpretation Comments Vitamin B12 Level (test code = 87139-5) 333 213-816 [facility] plasma thyrotropin measurement by detection limit <= 0.005 miu/l (units/volume)2020 05:45:00* Test Item Value Reference Range Interpretation Comments Thyroid Stimulating Hormone (TSH) (test code = 94512-0) 1.466 0.350-4.940 [facility] CenterFluoroscopic procedure less than one hour [id number] 14:00:00* Test Item Value Reference Range Interpretation Comments Coronavirus (PCR) (test code = Coronavirus (PCR)) NOT DETECTED NOTD ETECTED [employer] Aptima SARS-CoV-2 assay is a nucleic amplification test intended for the qualitative detection of RNA from SARS-CoV-2 from nasopharyngeal (FILM MOUNTER) specimens. It is used under Emergency Use Authorization (EUA) by FDA.A positive result is indicative of the presence of SARS-CoV-2 RNA. Clinical correlation with patient history and other diagnostic information is necessary to determine patient infe ction status.A negative (Not Detected) result does not preclude SARS-CoV-2 infec tion. Clinical Correlation with patient history and other diagnostic information should be used in patient management decisions.Invalid: Unable to generate a va lid result on this specimen. Please submit a new specimen for reprat testing oc clinically indicated.Tesing performed by:[facility] [id number] [place] [address] [id number], Chuck Galeas MD, PhD [facility] CenterGU Abdomen 2 views [id number] 14:17:00EXAM: XR ABDOMEN 2 VIEWSDATE: 03/21/2019 14:17 CDTINDICATION: - chronic idiopathic constipationADDITIONAL INFORMATION: None.COMPARISON: 03/10/2019 AP view of the pelvis, AP view of the abdomen of01/01/2019.TECHNIQUE: Supine and upright AP views of the abdomenFINDINGS: Lines and tubes: None.Lower thorax: Unremarkable where visualized.Bowel: Nonobstructive bowel gas pattern. No pneumatosis is seen. No free air isdetected.Solid organs: No abnormal mass or organomegaly seen. No abnormalintra-abdominal calcifications are seen.Bones: No acute abnormalities of mild levoscoliosis and degenerative changes inthe inferior thoracic and lumbar spine.Other: Calcified injection granulomas are seen in the buttocks.IMPRESSION:Stool volume appears normal on this exam. No bowel obstruction is seen.--Read by: Reinaldo Weathers MDDictated Date/time: 03/21/19 14:48Electronically Signed by: Reinaldo Weathers MD 03/21/1914:50FINAL REPORTUnBear [facility]] URINALYSIS, [id number] 14:27:01* Test Item Value Reference Range Interpretation Comments UA Turbidity; Abnormal (test code = 21313-8) Slight Clear A UA Spec Grav (test code = 5810-7) 1.011 <=1.030 UA pH (test code = 5803-2) 6.0 5.0-8.0 UA Protein (test code = 91991-5) Negative Negative UA Glucose (test code = 50474-2) Negative Negative UA Ketones (test code = 81510-0) Negative Negative UA Bili (test code = 5770-3) Negative Negative UA Blood (test code = 5794-3) Negative Negative UA Nitrite (test code = 5802-4) Negative Negative UA Leuk Est (test code = 5799-2) Negative Negative UA RBC (test code = 44080-3) 1 {/HPF} 0-2 UA Sq Epi (test code = 01553-5) Few Few UA Color (test code = 5778-6) Ltyellow UROBILINOGEN (test code = 21777-8) <=1.0 0.1-1.0 [facility]] CULTURE, URINE, [id number] 14:27:01* Test Item Value Reference Range Interpretation Comments FINAL REPORT (test code = FINAL REPORT) 10,000 - 50,000 CFU/mL Ski n Thelma [facility][O] Urine Dipstick (In Office)2019-03-17 14:02:00 * Test Item Value Reference Range Interpretation Comments Glucose (test code = Glucose) Negative N LEUKOCYTES (test code = LEUKOCYTES) Negative N NITRITE; Normal (test code = 05526-7) Negative N PROTEIN; Normal (test code = 95762-6) Negative N URINE BLOOD; Normal (test code = 92272-3) Negative N KETONES; Normal (test code = 98930-5) Negative N [facility][O] Urine Dipstick (In Office)2019-02-03 17:18:00 * Test Item Value Reference Range Interpretation Comments Glucose (test code = Glucose) Negative N LEUKOCYTES (test code = LEUKOCYTES) Trace A NITRITE; Normal (test code = 96021-9) Negative N PROTEIN; Normal (test code = 34124-3) Negative N URINE BLOOD; Abnormal (test code = 88011-6) Trace-Intact A KETONES; Normal (test code = 80974-7) Negative N [facility]] URINALYSIS, [id number] 14:03:01* Test Item Value Reference Range Interpretation Comments UA Turbidity; Abnormal (test code = 60489-4) Slight Clear A UA Spec Grav (test code = 5810-7) 1.012 <=1.030 UA pH (test code = 5803-2) 6.0 5.0-8.0 UA Protein (test code = 51906-9) Negative Negative UA Glucose (test code = 04705-6) Negative Negative UA Ketones (test code = 95300-8) Negative Negative UA Bili (test code = 5770-3) Negative Negative UA Blood; Abnormal (test code = 5794-3) Small Negative A UA Nitrite (test code = 5802-4) Negative Negative UA Leuk Est; Abnormal (test code = 5799-2) Trace Negative A UA RBC (test code = 86149-8) 2 {/HPF} 0-2 UA WBC (test code = 34525-8) 3 {/HPF} 0-5 UA Bacteria (test code = 04820-2) Occasional None Seen UA Mucus (test code = 8247-9) Few None Seen UA Sq Epi (test code = 87729-0) Few Few UA Color (test code = 5778-6) Ltyellow UROBILINOGEN (test code = 97486-6) <=1.0 0.1-1.0 [facility]] CULTURE, URINE, [id number] 14:03:01* Test Item Value Reference Range Interpretation Comments FINAL REPORT (test code = FINAL REPORT) 10,000 - 50,000 CFU/mL Ski n Thelma [facility][O] Urine Dipstick (In Office)2019-01-06 16:16:00 * Test Item Value Reference Range Interpretation Comments Glucose (test code = Glucose) Negative N LEUKOCYTES (test code = LEUKOCYTES) Large A NITRITE; Normal (test code = 08536-5) Negative N PROTEIN; Normal (test code = 39264-5) Negative N URINE BLOOD; Abnormal (test code = 64394-3) Moderate A KETONES; Normal (test code = 50919-5) Negative N [facility]] URINALYSIS, [id number] 00:00:01* Test Item Value Reference Range Interpretation Comments UA Turbidity; Abnormal (test code = 05539-9) Marked Clear A UA Spec Grav (test code = 5810-7) 1.013 <=1.030 UA pH (test code = 5803-2) 6.0 5.0-8.0 UA Protein (test code = 23994-1) Negative Negative UA Glucose (test code = 98742-5) Negative Negative UA Ketones (test code = 28647-5) Negative Negative UA Bili (test code = 5770-3) Negative Negative UA Blood; Abnormal (test code = 5794-3) Moderate Negative A UA Nitrite (test code = 5802-4) Negative Negative UA Leuk Est; Abnormal (test code = 5799-2) Large Negative A UA RBC; Above High Threshold (test code = 98467-2) 24 {/HPF} 0-2 UA WBC; Above High Threshold (test code = 39602-8) 56 {/HPF} 0-5 UA Bacteria (test code = 69916-4) Occasional None Seen UA Mucus (test code = 8247-9) Few None Seen UA Sq Epi (test code = 89775-2) Few Few UA Color (test code = 5778-6) Yellow UROBILINOGEN (test code = 99324-0) <=1.0 0.1-1.0 [facility]] CULTURE, URINE, [id number] 00:00:01* Test Item Value Reference Range Interpretation Comments ORGANISM (test code = 699-9) Methicillin Resistant Staphylococcus a ureus FINAL REPORT (test code = FINAL REPORT) 10,000 - 50,0 00 CFU/mL Methicillin Resistant Staphylococcus aureus SensitivityPending Amend Final (test code = Amend Final) 10,000 - 50,000 CFU/mL Methicillin Resistant Staphylococcus aureus [facility][] [id number] 00:00:01* Test Item Value Reference Range Interpretation Comments ORGANISM (test code = 699-9) Methicillin Resistant Staphylococcus a ureus Levofloxacin (test code = Levofloxacin) >4 R Nitrofurantoin (test code = Nitrofurantoin) <=32 S Oxacillin (test code = Oxacillin) >2 R Rifapam (test code = Rifapam) <=1 S Tetracycline (test code = Tetracycline) <=1 S Trimethoprim/Sulfamethoxazole (test code = Trimethopri m/Sulfamethoxazole) <=0.5/9.5 S Vancomycin (test code = Vancomycin) 1 S S= Susceptible, R= Resistant, I= Intermediate, N/A= Not Applicable [facility] 2 views [id number] 08:54:00 Clinical Indication: Coughing;Comparison: NoneFINDINGS:The PA and lateral chest radiographs shows normal lung volumes withoutinterstitial or airspace opacities, pleural effusions or pneumothorax.The heart size and pulmonary vasculature are normal. Atherosclerotic burden isappreciated in the aortic arch. The trachea is midline.There are no acute osseous abnormalities noted. Postsurgical changes are seenprojecting over the right humeral head. Degenerative changes are noted in t hebilateral chromic clavicular joints. Additional degenerative changes areapprec iated in portions of the visualized spine. Mild S-shaped scolioticcurvature of t he visualized spine is also noted.IMPRESSION:1. No chest radiographic evidence o f acute cardiopulmonary disease.2. Mild S-shaped scoliotic curvature of the visu alized spine.SL: [id number]--Mvrt by: Libertad Norwoodictated Date/time: 10:02Electronically Signed by: Libertad Norwood DO 0:04FINAL REPORTUnBear River [facility][O] Urine Dipstick (In Office)2018-11-04 12:44:00* Test Item Value Reference Range Interpretation Comments Glucose (test code = Glucose) Negative N LEUKOCYTES (test code = LEUKOCYTES) Negative N NITRITE; Normal (test code = 67343-5) Negative N PROTEIN; Normal (test code = 21204-7) Negative N URINE BLOOD; Normal (test code = 01064-5) Negative N KETONES; Normal (test code = 20100-2) Negative N [facility][O] Urine Dipstick (In Office)2018-10-28 17:11:00 * Test Item Value Reference Range Interpretation Comments Glucose (test code = Glucose) Negative N LEUKOCYTES (test code = LEUKOCYTES) Negative N NITRITE; Normal (test code = 12315-8) Negative N PROTEIN; Normal (test code = 24126-4) Negative N URINE BLOOD; Normal (test code = 88080-3) Negative N KETONES; Normal (test code = 75187-7) Negative N [facility]] URINALYSIS, [id number] 13:55:01* Test Item Value Reference Range Interpretation Comments UA Turbidity (test code = 15526-5) Clear Clear UA Spec Grav (test code = 5810-7) 1.015 <=1.030 UA pH (test code = 5803-2) 7.0 5.0-8.0 UA Protein (test code = 63274-7) Negative Negative UA Glucose (test code = 42461-6) Negative Negative UA Ketones (test code = 06373-1) Negative Negative UA Bili (test code = 5770-3) Negative Negative UA Blood (test code = 5794-3) Negative Negative UA Nitrite (test code = 5802-4) Negative Negative UA Leuk Est (test code = 5799-2) Negative Negative UA RBC (test code = 77212-2) 1 {/HPF} 0-2 UA Sq Epi (test code = 96737-6) Occasional Few UA Color (test code = 5778-6) Ltyellow UROBILINOGEN (test code = 66883-1) <=1.0 0.1-1.0 [facility]] CULTURE, URINE, [id number] 13:55:01* Test Item Value Reference Range Interpretation Comments FINAL REPORT (test code = FINAL REPORT) No Growth [facility]iciansTobacco Use [id number] 11:00:00* Test Item Value Reference Range Interpretation Comments Completed (test code = Completed) DONE [facility]
--- OUTSIDE RECORDS SUMMARY | 2020-01-12 18:50 | XMS REPORT | Clinical Summary ---
Author Author [facility] Organization [facility] Address Unknown Phone Unavailable Care Team Providers Care Under Water Assistant Name Role Phone Nabor Hays MD 5 Unavailable Allergies Comments Active Allergy Reactions Severity Noted Date No Known Allergies 12/05/2007 Medications End Date Status Medication Sig Dispensed Refills Start Date Active PRECISION XTRA use to check 1 0 GLUCOMETERIndications: sugars 0 Diabetes mellitus Active oxybutynin (DITROPAN) 5 Take 1 tablet 270 tablet 3 mg tabletIndications: by mouth 3 2 Unspecified urinary times daily. incontinence Active loratadine (CLARITIN) 10 Take 1 tablet 90 tablet 3 mg tabletIndications: by mouth 2 Allergic rhinitis, cause daily as unspecified needed for Allergies (cough, nasal congestion or scratchy throat). Active zolpidem (AMBIEN) 5 mg Take 1 tablet 30 tablet 0 0 TabIndications: Insomnia, by mouth 2 unspecified nightly as needed (insomnia ). Active famotidine (PEPCID) 20 mg Take 1 tablet 180 tablet 3 tabletIndications: GERD by mouth 2 3 (gastroesophageal reflux times daily. disease) Active ibuprofen (MOTRIN) 800 mg Take 1 tablet 90 tablet 3 tabletIndications: by mouth 4 Arthritis, gouty every 8 hours as needed for Pain. Active amitriptyline (ELAVIL) 10 Take 1 tablet 90 tablet 3 mg tabletIndications: by mouth at 4 Chronic headaches bedtime. Active SUMAtriptan (IMITREX) 50 Take 1 tablet 18 tablet 11 mg tabletIndications: by mouth at 4 Migraine headache onset of headache. Repeat after 2 hours if needed. Maximum 200mg/24 hours.. Active ibuprofen (MOTRIN) 800 mg Take 1 tablet 15 tablet 0 tabletIndications: Dental by mouth 4 examination every 8 hours as needed for Pain. Active HYDROcodone-acetaminophen Take 1 tablet 20 tablet 0 (NORCO) 5-325 mg by mouth 4 tabletIndications: ITP every 6 hours (idiopathic as needed for thrombocytopenic purpura) Pain. Active ibuprofen (MOTRIN) 800 mg Take 1 tablet 20 tablet 0 tabletIndications: ITP by mouth 4 (idiopathic every 8 hours thrombocytopenic purpura) as needed for Pain. Active gabapentin (NEURONTIN) Take 1 270 capsule 3 300 mg capsule by 5 capsuleIndications: Type mouth 3 times II diabetes mellitus, daily. well controlled Active lancets 28 by 100 Each 4 gaugeIndications: MISCELLANEOUS 5 Diabetes mellitus route 4 times weekly. Active metFORMIN (GLUCOPHAGE) Take 1 tablet 180 tablet 3 0 500 mg tabletIndications: by mouth 2 5 Type II diabetes times daily mellitus, well controlled (with meals). Active traMADol (ULTRAM) 50 mg Take 1 tablet 30 tablet 0 tabletIndications: Tooth by mouth 5 infection every 6 hours as needed for Pain. Active ergocalciferol (VITAMIN Take 1 12 capsule 0 D2) 50,000 unit capsule by 5 capsuleIndications: mouth weekly. Myalgia Active cetirizine (ZYRTEC) 10 mg Take 1 tablet 90 tablet 0 tabletIndications: Nasal by mouth 6 congestion daily. Active hydrochlorothiazide Take 1 tablet 90 tablet 3 07/16 (HYDRODIURIL) 25 mg by mouth 6 tabletIndications: daily. Essential hypertension Active blood glucose (PRECISION 4 times 50 Each 5 0 XTRA TEST STRIPS) test weekly Use as 6 stripsIndications: directed.. Diabetes mellitus Active losartan (COZAAR) 100 mg Take 1 tablet 90 tablet 3 tabletIndications: HTN by mouth 6 (hypertension) daily. Active ibuprofen (MOTRIN) 800 mg Take 1 tablet 20 tablet 0 tabletIndications: Dental by mouth 7 infection every 8 hours as needed for Pain. Active levothyroxine (SYNTHROID) Take 1 tablet 90 tablet 3 88 mcg tabletIndications: by mouth 8 Hypothyroidism, daily. unspecified type Active cetirizine (ZYRTEC) 10 mg Take 1 tablet 90 tablet 1 tabletIndications: by mouth 9 Allergic pharyngitis daily. Active famotidine (PEPCID) 20 mg Take 1 tablet 90 tablet 3 tabletIndications: GERD by mouth 2 9 without esophagitis times daily. Active atorvastatin (LIPITOR) 40 Take 1 tablet 90 tablet 3 mg tabletIndications: by mouth at 9 History of diabetes bedtime mellitus, Mixed nightly. hyperlipidemia Active Problems Problem Noted Date Subgingival dental calculus 05/07/2015 Pain, dental 03/18/2015 Dental examination 12/01/2013 Decay, teeth 04/12/2013 Diabetes mellitus 08/21/2011 Unspecified urinary incontinence 08/21/2011 Cystocele, midline 08/21/2011 Depression 05/07/2010 Hyperlipidemia LDL goal < 100 10/01/2009 Hypertriglyceridemia 10/01/2009 Chronic headache 10/01/2009 Idiopathic thrombocytopenic purpura 10/08/2008 Overview: 59yo F with ITP, prednisone recently di scontinued at hematology appt 12/09/09 - see Dr. Guallpa's note for mo re details. Beta-thalassemia 09/07/2008 Hiatal hernia 08/03/2008 GERD (gastroesophageal reflux disease) 08/03/2008 HTN (hypertension) 02/18/2006 Hypothyroidism 02/18/2006 Obesity Gout Encounters Care Team Description Date Type Specialty Wesley Fuentes, Fellow() Idiopathic thrombocytopenic purpura (Mariia faizan Dx) 01/01/2020 Office Visit Hematology Wesley Fuentes, Fellow() Idiopathic thrombocytopenic purpura (Mariia faizan Dx) 12/25/2019 Office Visit Hematology Davon Bravo, Fellow() Wesley Fuentes, Fellow() Idiopathic thrombocytopenic purpura (Mariia faizan Dx) 12/18/2019 Telephonic Hematology Encounter Davon Bravo, Fellow() Idiopathic thrombocytopenic purpura (Mariia faizan Dx); Beta-thalassemia 08/14/2019 Office Visit Hematology Davon Bravo, Fellow() Idiopathic thrombocytopenic purpura (Mariia faizan Dx); Beta-thalassemia 06/19/2019 Office Visit Hematology Davon Bravo, Fellow() Idiopathic thrombocytopenic purpura (Mariia faizan Dx) 03/20/2019 Office Visit Hematology Stef Levine, Fellow() Davon Bravo, Fellow() Idiopathic thrombocytopenic purpura (Mariia faizan Dx) 02/20/2019 Office Visit Hematology after 01/07/2019 Immunizations Name Administration Dates Next Due Hepatitis A Vaccine 04/29/2007, 10/27/2006 Influenza Vaccine 04/04/2015, 04/12/2010, , 03/28/1996 Pneumoccoccal 04/29/2007 Td Tetanus, diphtheria 09/16/1998 Toxoids Vaccine Tdap Tetanus, diphtheria, 08/21/2011 acellular pertussis Vaccine Family History Medical History Relation Name Comments Diabetes Sister Hypertension Sister Other pt denies family hx of: ra d/ca/cad/sz/cva Relation Name Status Comments Brother Alive Father Mother Alive Sister Alive Sister Social History Date Tobacco Use Types Packs/Day Years Used Quit: 02/19/1988 Former Smoker Cigarettes 0.1 3 Smokeless Tobacco: Never Used Tobacco Cessation: Counseling Given: No Drinks/Week oz/Week Comments Alcohol Use No Sex Assigned at Date Recorded Not on file Industry Job Start Date Occupation Not on file Not on file Not on file Travel End Travel History Travel Start No recent travel history available. Date Recorded COVID-19 Exposure Response 12/25/2019 10:45 AM CDT In the last month, have you been in contact with No / Unsure someone who was confirmed or suspected to have Coronavirus / COVID-19? Last Filed Vital Signs Reading Time Taken Comments Vital Sign 150/71 01/01/2020 1:10 PM CDT Blood Pressure 69 01/01/2020 1:10 PM CDT Pulse 37.1 C (98.7 F) 01/01/2020 1:10 PM CDT Temperature 18 01/01/2020 1:10 PM CDT typo, fixed from 8 to 18 * Respiratory Rate - - Oxygen Saturation - - Inhaled Oxygen Concentration 83 kg (182 lb 14.4 oz) 01/01/2020 1:10 PM CDT Weight 154.9 cm (5' 1") 01/01/2020 1:10 PM CDT Height 34.56 01/01/2020 1:10 PM CDT Body Mass Index Plan of Treatment Care Team Description Date Type Specialty 01/29/2020 Lab Appointment Lab Wesley Fuentes, Fellow() [address] [place] [address] 01/29/2020 Office Visit Hematology Health Maintenance Due Date Last Done Comments DM Foot Exam (Yearly) 09/28/2014 09/28/2013 DM Retinal Exam (Yearly) 01/11/2016 01/10/2015, 12/20/2014 (Previously completed - External), 03/02/2013, Additional history exists DM HGBA1C (Yearly) 06/17/2019 06/17/2018, 09/27/2015, 04/10/2015, Additional history exists Breast Cancer Scrn 07/01/2019 07/01/2018, (Yearly) 06/12/2016, 12/25/2014, Additional history exists IMM Influenza Seasonal 03/14/2020 04/04/2015, Mar to August (>/= 19 yrs) 04/12/2010, 04/07/2007, Additional history exists Colonoscopy 10yr 12/14/2023 12/13/2013 IMM Pneumococcal Age 66 Completed 04/29/2007 and Up Procedures Comments Procedure Name Priority Date/Time Associated Diag nosis DIFFERENTIAL, MANUAL Routine 01/01/2020 Idiopathi c 11:18 AM CDT thrombocytopenic purpura CBC Routine 01/01/2020 Idiopathic 11:18 AM CDT thrombocytopenic purpura CBC/DIFF Routine 01/01/2020 Idiopathic 11:18 AM CDT thrombocytopenic purpura DIFFERENTIAL, MANUAL Routine 12/25/2019 Idiopathi c 10:55 AM CDT thrombocytopenic purpura CBC Routine 12/25/2019 Idiopathic 10:55 AM CDT thrombocytopenic purpura CBC/DIFF Routine 12/25/2019 Idiopathic 10:55 AM CDT thrombocytopenic purpura HBV DNA, PCR Routine 12/25/2019 Idiopathic 10:55 AM CDT thrombocytopenic purpura DIFFERENTIAL, MANUAL Routine 12/11/2019 Idiopathi c 8:39 AM CDT thrombocytopenic purpura CBC Routine 12/11/2019 Idiopathic 8:39 AM CDT thrombocytopenic purpura COMPREHENSIVE METABOLIC Routine 12/11/2019 Idiopa thic PANEL 8:39 AM CDT thrombocytopenic pu rpura CBC/DIFF Routine 12/11/2019 Idiopathic 8:39 AM CDT thrombocytopenic purpura FERRITIN Add-on 08/14/2019 Beta-thalassemi a 11:52 AM MANAGER [employer] CBC Routine 08/14/2019 Idiopathic 11:52 AM [employer]NAGER [employer] thrombocytopenic purpura COMPREHENSIVE METABOLIC Routine 08/14/2019 Idiopa thic PANEL 11:52 AM MANAGER IT [employer] thrombocytopenic pu rpura CBC/DIFF Routine 08/14/2019 Idiopathic 11:52 AM MANAGER [employer] thrombocytopenic purpura CBC Routine 06/19/2019 Idiopathic 12:05 PM MANAGER [employer] thrombocytopenic purpura COMPREHENSIVE METABOLIC Routine 06/19/2019 Idiopa thic PANEL 12:05 PM MANAGER [employer] thrombocytopenic pu rpura CBC/DIFF Routine 06/19/2019 Idiopathic 12:05 PM [employer]NAGER [employer] thrombocytopenic purpura CBC Routine 03/20/2019 Idiopathic 1:08 PM CDT thrombocytopenic purpura COMPREHENSIVE METABOLIC Routine 03/20/2019 Idiopa thic PANEL 1:08 PM CDT thrombocytopenic pu rpura CBC/DIFF Routine 03/20/2019 Idiopathic 1:08 PM CDT thrombocytopenic purpura CBC Routine 02/20/2019 Idiopathic 12:24 PM CDT thrombocytopenic purpura COMPREHENSIVE METABOLIC Routine 02/20/2019 Idiopa thic PANEL 12:24 PM CDT thrombocytopenic pu rpura CBC/DIFF Routine 02/20/2019 Idiopathic 12:24 PM CDT thrombocytopenic purpura after 01/07/2019 Results * CBC/Diff (01/01/2020 11:18 AM CDT) Only the most recent of 7 results within the time period is included. WBC 7.6 4.5 - 11.0 K/uL [facility] RBC 5.60 (H) 4.20 - 5.40 M/uL [facility] Hemoglobin 11.0 (L) 12.0 - 16.0 g/dL [facility] Hematocrit 34.9 (L) 37.0 - 47.0 % [facility] MCV 62.3 (L) 82.0 - 92.0 fL [facility] MCH 19.6 (L) 27.0 - 32.0 pg [facility] MCHC 31.5 (L) 32.0 - 36.0 g/dL [facility] RDW 35.1 (L) 36.4 - 46.3 fL [facility] Platelet 42 (L) 150 - 400 K/uL [facility] Mean Platelet Comment: Unable to determine a [facility] Volume value due to abnormal platelet LAB distribution. Specimen Blood Performing Organization Address City/State/Zipcode Ph one Number [facility] [address] * Differential, Manual (01/01/2020 11:18 AM CDT) Only the most recent of 3 results within the time period is included. WBC 7.6 4.5 - 11.0 K/uL [facility] Neutrophil 48.0 34.0 - 70.0 % [facility] Lymphs 39.0 20.0 - 50.0 % [facility] Monocytes 7.0 5.0 - 12.0 % [facility] Eos 4.0 0.7 - 5.0 % [facility] Basos 1.0 0.1 - 1.2 % [facility] Atypical Lymph 1 (H) <=0 % [facility] Segs + Bands, 3.65 K/uL [facility] Abs LAB Neutrophils 3.65 1.56 - 6.13 K/uL [facility] (Absolute) LAB Lymphs 2.96 1.18 - 3.74 K/uL [facility] (Absolute) LAB Monocytes(Absol 0.53 (H) 0.24 - 0.36 K/uL [facility] jazmine) LAB Eos (Absolute) 0.30 0.04 - 0.36 K/uL [facility] Baso (Absolute) 0.08 0.01 - 0.08 K/uL [facility] Large Platelets 1+ (A) None seen [facility] Hypochromia 2+ (A) None seen [facility] Cells Counted 100 [facility] Specimen Blood Performing Organization Address [facility] Ph one Number [facility] [address] * HBV DNA, PCR (12/25/2019 10:55 AM CDT) [facility] HBV DNA, PCR Not detected Not detected IU/mL [facility] Specimen Blood - Arm, right Narrative Performed At This test utilizes FDA cleared COSME Am pliPrep/COSME TaqMan HBV test, v2.0 from [facility] Superfish which allo ws quantitation of viral loads between 20 IU/mL and 170,000,000 IU/mL of plasma. When the result is positive but less than 20 copies/mL the test will be reported as "HBV DNA detected less than 20 copies/mL". The COSME AmpliPrep/COSME T aqMan HBV test, v2.0 is not intended for use as a screening test for the presenc e of HBV in blood or a diagnostic test to confirm the presence of HBV infection. This test is intended for use as an aid in the management of patients with family preservation officer anjana HBV infection. Performing Organization Address [facility] one Number [facility] [address] [place] [address] [phone] * Comprehensive Metabolic Panel (12/11/2019 8:39 AM CDT) Only the most recent of 5 results within the time period is included. [facility] Sodium 136 136 - 145 mmol/L [facility] Potassium 4.1 3.5 - 5.1 mmol/L [facility] Chloride 102 98 - 107 mmol/L [facility] CO2 25 21 - 31 mmol/L [facility] Glucose 173 (H) 70 - 110 mg/dL [facility] Calcium 9.3 8.6 - 10.3 mg/dL [facility] Urea Nitrogen 11.0 7.0 - 25.0 mg/dL [facility] Creatinine 0.8 0.6 - 1.2 mg/dL [facility] Alkaline 93 34 - 104 U/L [facility] Phosphatase LAB ALT 34 7 - 52 U/L [facility] AST 25 13 - 39 U/L [facility] Bilirubin, 0.9 0.2 - 1.2 mg/dL [facility] Total LAB Total Protein 7.5 6.0 - 8.3 g/dL [facility] GFR, Estimated 71 (L) >=90 mL/min/1.73 m2 [facility] IC LAB Albumin 4.4 3.7 - 5.3 g/dL [facility] Anion Gap 9 5 - 16 mmol/L [facility] Specimen Blood Performing Organization Address City/State/Zipcode Ph one Number [facility] [address] * Ferritin (08/14/2019 11:52 AM MANAGER IT [employer]URITY) Ferritin 135.9 11.0 - 306.8 ng/mL [facility] Specimen Blood Performing Organization Address City/[facility] Ph one Number [facility] [address] [place] [address] [phone] after 01/07/2019 Insurance Type Payer Benefit Subscriber ID Effective Phone Address Plan / Dates Group MEDICARE MEDICARE xxxxxxxxxxx 2015-P [id number] [place] [address] [place] MED[place] [id number] xxxxxxxxx 2015-P [phone] [id number] MEDICARE [place], [place] BENEFICIAR [id number] Y
--- OUTSIDE RECORDS SUMMARY | 2020-01-12 18:50 | XMS REPORT | Summary of Care ---
Author Author NIKKI TRAVIS M.D.[facility] Organization Unknown Address Unknown Phone Unavailable Care Team Providers Care Consulting Database Administrator Name Role Phone ANGY Strange, DAVID Unavailable Unavailable Bruna GUZMAN, Gladis Unavailable Unavailable Faith GUZMAN, Ivelisse Unavailable Unavailable ANGY GUZMAN, DAVID Unavailable Unavailable ALFREDO GUZMAN, RENA Unavailable Unavailable Unavailable Unavailable Functional Status Name Dates Details Functional status health issues are not documented Status: Name Dates Details Cognitive status health issues are not d ocumented Status: Problems Name Dates Details Atrophic vaginitis (627.3, N95.2) Status: Active Incomplete uterovaginal prolapse (618.2, N81.2) Status: Active Bladder prolapse Status: Active Fitting and adjustment of pessary (V53.9 9, Z46.89) Status: Active Post-operative state (V45.89, Z98.890) Status: Active Vulvovaginal candidiasis (112.1, B37.3) Status: Active Postoperative examination (V67.00, Z09) Status: Active Chronic idiopathic constipation (564.00, K59.04) Status: Active Urinary symptom or sign (788.99, R39.9) Status: Active OAB (overactive bladder) (596.51, N32.81 ) Status: Active Medications Name Dates Details Losartan Potassium 100 MG Oral Tablet TAKE 1 TABLET DAILY. * Start : 14-Oct-2018 Active 30 Tablet Bottle Levothyroxine Sodium 88 MCG Oral Tablet * Refills: 0 * Start : 14-Oct-2018 Active Polyethylene Glycol 3350 Oral Powder MIX 1 CAPFUL (17GM) IN 8 OUNCES OF WATER, JUICE, OR TEA AND DRINK DAILY. * Quantity: 527 Refills: 4 ANGY Strange, SOLAFA * Start : 14-Oct-2018 Active Estradiol 0.1 MG/GM Vaginal Cream INSERT 1 GRAM INTO THE VAGINA USING APPLICATOR EVERY OTHER NIGHT AT BEDTIME FOR 6 WEEKS THEN DECREASE TO TWICE WEEKLY AT BEDTIME THEREAFTER * Quantity: 2 Refills: 11 ANGY Strange, SOLAFA * Start : 14-Oct-2018 Active 42.5 GM Tube hydroCHLOROthiazide 25 MG Oral Tablet TAKE 1 TABLET DAILY. * Refills: 0 * Start : 28-Oct-2018 Active Linzess 145 MCG Oral Capsule Take 1 capsule every morning, 30 minutes prior to eating. * Quantity: 30 Refills: 3 ANGY Strange, SOLAFA * Start : 17-Mar-2019 Active Myrbetriq 50 MG Oral Tablet Extended Release 24 Hour TAKE 1 TABLET DAILY * Quantity: 30 Refills: 3 ANGY Strange, SOLAFA * Start : 19-May-2019 Active Allergies and Adverse Reactions Name Dates Details Penicillins (Allergy) Status: Active Past Medical History Name Dates Details History of diabetes mellitus (V12.29, Z8 6.39) Status: Resolved History of hypertension (V12.59, Z86.79) Status: Resolved History of hypothyroidism (V12.29, Z86.3 9) Status: Resolved History of Post-operative state (V45.89, Z98.890) Status: Resolved History of Temporary low platelet count (287.5, D69.6) Status: Resolved Procedures Procedure Dates Details History of Carpal tunnel surgery Complet ed History of section Completed History of Breast biopsy excisional Comp leted History of Shoulder surgery Completed Immunization Name Dates Details Immunizations not documented Family History Name Dates Details Family history of leukemia (V16.6, Z80.6 ) Status: Active Social History Name Dates Details - Status: Name Dates Details Never smoker Vital Signs Date Test Result Details [id number] BP Systolic 124 mm[Hg] Status: Comments: Lo cation: LUE; Position: Sitting BP Diastolic 86 mm[Hg] Status: Comments: Lo cation: LUE; Position: Sitting Height 63 in Status: Weight 181.25 lb Status: Body Mass Index Calculated 32.11 kg/m2 Status: Body Surface Area Calculated 1.85 m2 Status: Temperature 98.4 f Status: Comments: Me thod: Oral Heart Rate 74 /min Status: O2 SAT 98 % Status: Results Date Description Value Details Results not documented Plan of Care Name Dates Details Planned Observations Planned Goals not documented Planned Encounters Appointment; DAVID TRAVIS M.D. On: 18-Aug-2019 11:30 Appointment; IVELISSE HAQUE M.D. On: 06-Oct-2019 13:45 Interventions Provided Medication Changes* Linzess 145 MCG Oral Capsule - Renew * Myrbetriq 50 MG Oral Tablet Extended Release 24 Hour - Start Plan* -Continue Myrbetriq 50mg po qd, new Rx sent to pharmacy * -Continue Linzess and Miralax, new Rx for Linzess sent to pharmacy * -RTC in 3 months or as needed Instructions Name Dates Details Instructions not documented Encounters Appointment; DAVID TRAVIS M.D. Encounter Diagnosis: Problem not documented On: 14-Oct-2018 11:00 Appointment; DAVID TRAVIS M.D. Encounter Diagnosis: Problem not documented On: 28-Oct-2018 10:00 Appointment; DAVID TRAVIS M.D. Encounter Diagnosis: Problem not documented On: 04-Nov-2018 11:30 Appointment; DAVID TRAVIS M.D. Encounter Diagnosis: Problem not documented On: 23-Dec-2018 7:30 Appointment; DAVID TRAVIS M.D. Encounter Diagnosis: Problem not documented On: 06-Jan-2019 9:00 Appointment; DAVID TRAVIS M.D. Encounter Diagnosis: Problem not documented On: 03-Feb-2019 9:00 Appointment; DAVID TRAVIS M.D. Encounter Diagnosis: Problem not documented On: 17-Mar-2019 9:00 Appointment; IVELISSE HAQUE M.D. Encounter Diagnosis: Problem not documented On: 21-Mar-2019 13:00 Appointment; IVELISSE HAQUE M.D. Encounter Diagnosis: Problem not documented On: 06-Apr-2019 15:00 Appointment; DAVID TRAVIS M.D. Encounter Diagnosis: Problem not documented On: 19-May-2019 13:30
--- OUTSIDE RECORDS SUMMARY | 2020-01-12 18:50 | XMS REPORT | Summary of Care ---
Author Author NIKKI GONZALEZ APRN [facility] Organization Unknown Address Unknown Phone Unavailable Care Team Providers Care Outreach Nurse Name Role Phone SHABNAM Strange, IVELISSE Unavailable Unavailable ANGY Strange, DAVID Unavailable Unavailable Bruna GUZMAN, Gladis Unavailable Unavailable Shabnam GUZMAN, Ivelisse Unavailable Unavailable ANGY GUZMAN, DAVID [...] Active Postoperative examination (V67.00, Z09) Status: Active Urinary symptom or sign (788.99, R39.9) Status: Active OAB (overactive bladder) (596.51, N32.81 ) Status: Active Chronic idiopathic constipation (564.00, K59.04) Status: Active Medications Name Dates Details Losartan Potassium 100 MG Oral Tablet TAKE 1 TABLET DAILY. * Start : 14-Oct-2018 Active 30 Tablet Bottle Levothyroxine Sodium 88 MCG Oral Tablet * Refills: 0 * Start : 14-Oct-2018 Active Polyethylene Glycol 3350 17 GM/SCOOP Oral Powder MIX 1 CAPFUL (17GM) IN [...] * Quantity: 2 Refills: 11 ANGY Strange, BARRYAFA * Start : 14-Oct-2018 Active 42.5 GM Tube hydroCHLOROthiazide 25 MG Oral Tablet TAKE 1 TABLET DAILY. * Refills: 0 * Start : 28-Oct-2018 Active Linzess 145 MCG Oral Capsule Take 1 capsule every morning, 30 minutes prior to eating. * Quantity: 30 Refills: 3 ANGY Strange, BARRYAFA * Start : 17-Mar-2019 Active Myrbetriq 50 MG Oral Tablet Extended Release 24 Hour TAKE 1 TABLET DAILY * Quantity: 30 Refills: 3 ANGY Strange, BARRYAFA * Start : 19-May-2019 Active Allergies and [...] Details - Status: Name Dates Details Never smoked tobacco (finding) Vital Signs Date Test Result Details No Known Vitals to report Results Date Description Value Details Results not documented Plan of Care Name Dates Details Planned Observations Planned Goals not documented Planned Encounters Appointment; IVELISSE HAQUE M.D. On: 03-Nov-2019 14:45 Interventions Provided Plan* Plan Continue Linzess and MiraLAX * Return to clinic in 6 months Instructions Name Dates Details Instructions not documented [...] Diagnosis: Problem not documented On: 19-May-2019 13:30 Appointment; DAVID TRAVIS M.D. Encounter Diagnosis: Problem not documented On: 18-Aug-2019 11:30 Appointment; IVELISSE HAQUE M.D. Encounter Diagnosis: Problem not documented On: 03-Nov-2019 14:45
== END 2020-01-11 17:19 | disposition home or self-care (01) | DRG 813 ==
LOC: FSED 11:40 → ERHOLD 12:46 → MED/SURG3 15:39 → OBSVTOIN 01-10 15:16
PROVIDERS: ADMIT Internal Medicine; ATTEND Internal Medicine
PROC: 30240N1 Transfusion of Nonautologous Red Blood Cells into Central Vein, Open Approach (ICD-10-PCS; principal; 2020-01-08)
DX: D69.3 Immune thrombocytopenic purpura (principal); I16.1 Hypertensive emergency; D64.9 Anemia, unspecified; Z11.59 Encounter for screening for other viral diseases; E03.9 Hypothyroidism, unspecified; K21.9 Gastro-esophageal reflux disease without esophagitis; Z88.0 Allergy status to penicillin; D58.2 Other hemoglobinopathies
CPT/HCPCS: 36415; 76700; 80048; 80053; 80061; 80076; 82607; 82746; 82948; 83010; 83021; 83036; 83540; 83615; 84443; 84466; 85007; 85025; 85027; 85045; 85049; 85384; 85610; 86850; 86870; 86880; 86900; 86905; 99001; 99284; G0378; J1100; J1817; P9034; U0002